=== PATIENT | female | born 1975 | race American Indian/Alaskan Native ===

== ENCOUNTER 2017-02-01 06:55 | Day surgery (SDC) | payer BC, MEDICAID, OTHER ==
[~2017-02-01 06:55] MED LIST: Bupivacaine 0.5% 10 ML SDV ONE; Lactated Ringers 1,000 ML IV SCH; Lidocaine 1% 30 ML SDV ONE; Sodium Chloride 0.9% 10 ML Syringe FLUSH PRN
[2017-02-01] MEDS ORDERED: ceFAZolin 1 GM in Premix Bag 1 BAG IV ONE (07:00)
[2017-02-01] MEDS ORDERED: fentaNYL 100 MCG/2 ML SDV ONE (07:54)
[2017-02-01] MEDS ORDERED: Midazolam 1 MG/ML 2 ML SDV ONE (07:54)
[2017-02-01] MEDS ORDERED: Glycopyrrolate 0.2 MG/ML 2 ML SDV ONE (07:55)
[2017-02-01] MEDS ORDERED: Ondansetron 4 MG/2 ML SDV ONE (07:55)
[2017-02-01] MEDS ORDERED: ePHEDrine 50 MG/ML SDV ONE (07:55)
[2017-02-01] MEDS ORDERED: Propofol 200 MG/20 ML SDV ONE (07:55)
[2017-02-01] MEDS ORDERED: Ketorolac 30 MG/ML SDV ONE (07:55)
[2017-02-01] MEDS ORDERED: Phenylephrine 1% 10 MG/ML SDV ONE (07:55)
[2017-02-01] MEDS ORDERED: Lidocaine 2% 20 ML MDV ONE (07:56)
[2017-02-01] MEDS ORDERED: Succinylcholine 200 MG/10 ML MDV ONE (07:56)
[2017-02-01] MEDS ORDERED: Bupivacaine 0.5% 10 ML SDV INJECT ONE ×3 (08:56→16:48)
[2017-02-01] MEDS ORDERED: Lidocaine 1% 30 ML SDV INJECT ONE ×3 (08:56→16:48)
[2017-02-01 11:01] VITALS: BP 140/82
--- NOTE | 2017-02-01 11:31 | PCM.OPNOTE ---
- General Post-Op/Procedure Note Date of Surgery/Procedure: 02/01/17 Operative Procedure(s): Right foot open plantar fasciectomy Pre Op Diagnosis: Right foot plantar fasciitis Post-Op Diagnosis: louie Anesthesia Technique: Local, MAC Primary Surgeon: Barbara Benedict Anesthesia Provider: Lennox Amaro EBL in mLs: 5 Complications: none Condition: Stable Free Text/Narrative:: Intake & Output 01/31/17 02/01/17 02/01/17 22:59 06:59 14:59 Intake Total 1100 Balance 1100 Pt tolerated procedure well and was transported to recovery with vss and vascular status intact to right foot. TT 26 mins. Well padded L&U splint applied with foot in 90 degrees.
--- NOTE | 2017-02-01 13:00 | OR ---
DATE: 02/01/2017 PREOPERATIVE DIAGNOSIS: Right foot plantar fasciitis. POSTOPERATIVE DIAGNOSIS: Right foot plantar fasciitis. PROCEDURE PERFORMED: Right foot open plantar fasciectomy. ANESTHESIA: Local MAC with preoperative local block of 10 mL 1:1 mixture of 1% lidocaine plain and 0.5% Marcaine plain. TOURNIQUET TIME: 26 minutes pneumatic ankle tourniquet. ESTIMATED BLOOD LOSS: Minimal. SPECIMEN: None. COMPLICATIONS: None. INDICATIONS: Elsie is a 41-year-old female, who presents with pain in the right foot in the heel area. She states her pain is 9/10 at worst. The onset is last spring. I have seen her in the past and we have tried shoe inserts, stretching, prednisone dose, activity modifications with no relief. The pain is aching and burning, sharp in nature and it is worsening. It is worse after weightbearing, standing after rest, and in the morning. She is on her feet all day at work, she works at the [employer] and this does get very painful for her by the end of the day. The patient voiced good understanding of proposed procedure and possible complications and elects to have surgery at this time. DESCRIPTION OF PROCEDURE: The patient was taken to the operating room, lying in supine position. After adequate anesthesia induction as described above, the right foot was prepped and draped in the usual sterile fashion. A pneumatic ankle tourniquet was inflated to 220 mmHg. Attention was then directed to the instep just distal to the calcaneal fat pad where an approximately 3 cm linear incision was made on the plantar aspect of the foot to gain access to the medial and central band of the plantar fascia. Sharp and blunt dissection performed down to the level of the plantar fascia band. An approximately 1 cm2 section of the central and medial band of the plantar fascia was resected from the foot. This was noted to be very thickened in nature. Inspection of the site revealed no further tightness to the plantar fascia in this area. The site was then flushed with copious amounts of sterile saline. Deep closure was completed with 3-0 Vicryl, and skin closure was completed with 4-0 nylon. The area was then dressed with Xeroform to the incision site, fluffs, Webril, and a well-padded L and U splint with the foot in 90 degrees. The patient tolerated the anesthesia and the procedure well and was brought to recovery room with vital signs stable in good condition with vascular status intact to the right foot as noted by immediate hyperemia upon deflation of the tourniquet. Tourniquet time was 26 minutes. The patient was then discharged home once she met hospital discharge requirements. [facility] /[id number]
[2017-02-01] MEDS ORDERED: Glycopyrrolate 0.2 MG/ML 2 ML SDV IV ONE (15:47)
[2017-02-01] MEDS ORDERED: Ketorolac 30 MG/ML SDV IVPUSH ONE (15:47)
[2017-02-01] MEDS ORDERED: Ondansetron 4 MG/2 ML SDV IV ONE (15:47)
[2017-02-01] MEDS ORDERED: fentaNYL 100 MCG/2 ML SDV IV ONE (15:47)
[2017-02-01] MEDS ORDERED: Propofol 200 MG/20 ML SDV IV ONE (15:47)
[2017-02-01] MEDS ORDERED: Lidocaine 2% 20 ML MDV INJECT ONE (15:47)
[2017-02-01] MEDS ORDERED: Midazolam 1 MG/ML 2 ML SDV IV ONE (15:47)
== END 2017-02-01 10:50 | disposition home or self-care (01) ==
LOC: DL.SDS 06:55
PROVIDERS: ATTEND Podiatrist
DX: M72.2 Plantar fascial fibromatosis (principal); F32.9 Major depressive disorder, single episode, unspecified; E11.9 Type 2 diabetes mellitus without complications; E78.5 Hyperlipidemia, unspecified; M17.0 Bilateral primary osteoarthritis of knee; Z79.84 Long term (current) use of oral hypoglycemic drugs; Z98.890 Other specified postprocedural states; Z79.82 Long term (current) use of aspirin; Z79.899 Other long term (current) drug therapy; Z87.891 Personal history of nicotine dependence
CPT/HCPCS: 28060; 81025; J0690; J1885; J2250; J2405; J2704; J3010; J7120; J3490

== ENCOUNTER 2018-04-10 01:36 | Inpatient (IN) | payer MEDICAID, OTHER ==
[2018-04-10] MEDS ORDERED: cefTRIAXone 1 GM Vial IVPUSH ONE (01:57)
[2018-04-10] MEDS ORDERED: Vancomycin 1.5 GM in Sodium Chloride 0.9% 500 ML IV ONE (01:57)
[2018-04-10] MEDS ORDERED: Ketorolac 30 MG/ML SDV IVPUSH ONE (01:59)
[2018-04-10] MEDS ORDERED: Sodium Chloride 0.9% 1,000 ML IV ONE (01:59)
[2018-04-10] MEDS ORDERED: Ondansetron 4 MG/2 ML SDV IV ONE (01:59)
[2018-04-10] MEDS ORDERED: Morphine 4 MG/ML Syringe IVPUSH ONE (02:00)
[2018-04-10] MEDS ORDERED: Lidocaine 1% 30 ML SDV ONE (02:04)
[2018-04-10] MEDS ORDERED: Lidocaine 1% 30 ML SDV INJECT ONE (02:04)
[2018-04-10] MEDS ORDERED: Midazolam 1 MG/ML 2 ML SDV IVPUSH ONE ×2 (02:23→02:53)
[2018-04-10 02:39] LABS: ANION GAP 11.4; CHLORIDE,CL 99 mmol/L (101-111); SODIUM,NA 132 mmol/L (135-145)
[2018-04-10] MEDS ORDERED: HYDROmorphone 0.5 MG/0.5 ML Syringe ONE (02:43)
[2018-04-10] MEDS ORDERED: HYDROmorphone 0.5 MG/0.5 ML Syringe IVPUSH ONE (02:43)
[2018-04-10] MEDS ORDERED: Midazolam 1 MG/ML 2 ML SDV ONE (02:53)
[2018-04-10] MEDS ORDERED: Iopamidol 612 MG/ML 100 ML Bottle IVPUSH ONE (03:50)
--- NOTE | 2018-04-10 05:12 | EDM.PDOC ---
ED HPI GENERAL MEDICAL PROBLEM - General Chief Complaint: Upper Extremity Injury/Pain Stated Complaint: ARM SWOLLEN [id number] Time Seen by Provider: 04/10/18 01:50 Source of Information: Reports: Patient, RN Notes Reviewed - History of Present Illness INITIAL COMMENTS - FREE TEXT/NARRATIVE: patient emergency department today with complaints of pain and swelling to her right elbow. Since Sunday she has developed a very painful swollen right elbow that has gotten much worse. She does complain of some generalized malaise and fatigue fever without chills. She denies any recent trauma falls or any other trauma to the right arm. She has not had any IVs blood draws her medication injection in the recent past.She has taken some Tylenol without improvement. She denies any pain in the axilla. Denies any numbness or tingling to the distal aspect of her hand of the right upper extremity. Right Arm Pain Score (Numeric/FACES): 9 - Related Data Allergies Allergy/AdvReac Type Severity Reaction Status Date / Time No Known Allergies Allergy Verified 04/10/18 01:40 Home Meds: Home Meds Gabapentin 600 mg PO TID 04/30/15 [History] Lisinopril 1 tab PO DAILY 04/30/15 [History] metFORMIN [Glucophage] 1 tab PO BID 04/30/15 [History] Aspirin 1 tab PO DAILY 01/31/17 [History] Rosuvastatin Calcium 1 tab PO DAILY 01/31/17 [History] Past Medical History - Past Health History Medical/Surgical History: Denies Medical/Surgical History HEENT History: Reports: None Cardiovascular History: Reports: High Cholesterol, Hypertension Respiratory History: Reports: None Gastrointestinal History: Reports: None Genitourinary History: Reports: None [employer] History: Reports: Musculoskeletal History: Reports: Arthritis Neurological History: Reports: Neuropathy, Diabetic Psychiatric History: Reports: Depression Endocrine/Metabolic History: Reports: Diabetes, Type II Hematologic History: Reports: None Immunologic History: Reports: None Oncologic (Cancer) History: Reports: None Dermatologic History: Reports: None - Infectious Disease History Infectious Disease History: Reports: None - Past Surgical History Head Surgeries/Procedures: Reports: None HEENT Surgical History: Reports: None Cardiovascular Surgical History: Reports: None Respiratory Surgical History: Reports: None GI Surgical History: Reports: None Female Surgical History: Reports: Section, LEEP Musculoskeletal Surgical History: Reports: Carpal Tunnel Social & Family History - Tobacco Use Smoking Status *Q: Current Every Day Smoker Years of Tobacco use: 1 Packs/Tins Daily: 0.5 Second Hand Smoke Exposure: Yes - Caffeine Use Caffeine Use: Reports: Coffee - Recreational Drug Use Recreational Drug Use: No - Living Situation & Occupation Living situation: Reports: Occupation: Employed Review of Systems - Review of Systems Review Of Systems: ROS reveals no pertinent complaints other than HPI. ED EXAM, GENERAL - Physical Exam Exam: See Below Exam Limited By: No Limitations General Appearance: Alert, WD/WN Respiratory/Chest: No Respiratory Distress, Lungs Clear, No Accessory Muscle Use Cardiovascular: Normal Peripheral Pulses, Regular Rate, Rhythm Peripheral Pulses: 2+: Radial (L), Radial (R), Posterior Tibial (L), Posterior Tibial (R), Dorsalis Pedis (L), Dorsalis Pedis (R) GI/Abdominal: Normal Bowel Sounds, Soft Extremities: Joint Swelling (there is generalized swelling surrounding the right elbow more on the antecubital fossa.), Limited Range of Motion (to the right arm.), Increased Warmth (o the right arm.), Other (n the antecubital fossa of the right arm there is also a noted fluctuance concerning for abscess. There is no breaks in the skin.) Neurological: Alert, Oriented Psychiatric: Normal Affect Skin Exam: Dry, Intact, Increased Warmth ED TRAUMA EXTREMITY PROCEDURES - I&D Site: right antecubital fossa Skin Prep: Providone-Iodine (Betadine) Local Anesthesia: Lidocaine: 1% Plain Local Anesthetic Volume: Other (15) Area Incised With: 11 Blade Drainage: Purulent, Bloody, Large Amount Probed to Break Up Loculations: Yes Packed With: 1/4 in. Iodoform Sterile Dressing: Adhesive Dressing Complications: No Course - Vital Signs Last Recorded V/S: Last Vital Signs Temp 36.6 C 04/10/18 01:37 Pulse 109 H 04/10/18 01:37 Resp 18 04/10/18 01:37 BP 167/85 H 04/10/18 01:37 Pulse Ox 100 04/10/18 01:37 - Orders/Labs/Meds Orders: Active Orders 24 hr Category Date Time Status Upper Extremity w Cont Rt [CT] Urgent Exams 04/10/18 03:04 Taken CULTURE BLOOD [BC] Stat Lab 08/22/18 01:55 Ordered CULTURE BLOOD [BC] Stat Lab 04/10/18 02:07 Received Blood Culture x2 Reflex Set [OM.PC] Stat Oth 04/10/18 01:55 Ordered Labs: Laboratory Tests 04/10/18 04/10/18 04/10/18 Range/Units 02:07 02:07 02:07 WBC 23.2 H (5.0-10.0) 10^3/uL RBC 4.60 (4.2-5.4) 10^6/uL Hgb 14.0 (12.0-16.0) g/dL Hct 41.9 (37.0-47.0) % MCV 91.1 (80-100) fL MCH 30.4 (27.0-34.0) pg MCHC 33.4 (33.0-35.0) g/dL Plt Count 458 H (150-450) 10^3/uL Neut % (Auto) 80.3 H (42.2-75.2) % Lymph % (Auto) 10.8 L (20.5-50.1) % [place] % (Auto) 7.5 (2-8) % Eos % (Auto) 1.3 (1.0-3.0) % Baso % (Auto) 0.1 (0.0-1.0) % Sodium 132 L (135-145) mmol/L Potassium 3.4 L (3.6-5.0) mmol/L Chloride 99 L (101-111) mmol/L Carbon Dioxide 25.0 (21.0-31.0) mmol/L Anion Gap 11.4 BUN 11 (7-18) mg/dL Creatinine 0.6 (0.6-1.3) mg/dL Est Cr Clr Drug Dosing 112.01 mL/min Estimated GFR (MDRD) > 60 BUN/Creatinine Ratio 18.33 Glucose 219 H (74-105) mg/dL Lactic Acid 1.6 (0.5-2.2) mmol/L Calcium 8.6 (8.4-10.2) mg/dl Total Bilirubin 0.2 (0.2-1.0) mg/dL AST 23 (10-42) IU/L ALT 22 (10-60) IU/L Alkaline Phosphatase 130 H (42-121) IU/L C-Reactive Protein (0.0-1.3) mg/dL Total Protein 8.3 H (6.7-8.2) g/dl Albumin 3.5 (3.2-5.5) g/dl Globulin 4.8 Albumin/Globulin Ratio 0.73 04/10/18 Range/Units 02:07 WBC (5.0-10.0) 10^3/uL RBC (4.2-5.4) 10^6/uL Hgb (12.0-16.0) g/dL Hct (37.0-47.0) % MCV (80-100) fL MCH (27.0-34.0) pg MCHC (33.0-35.0) g/dL Plt Count (150-450) 10^3/uL Neut % (Auto) (42.2-75.2) % Lymph % (Auto) (20.5-50.1) % [place] % (Auto) (2-8) % Eos % (Auto) (1.0-3.0) % Baso % (Auto) (0.0-1.0) % Sodium (135-145) mmol/L Potassium (3.6-5.0) mmol/L Chloride (101-111) mmol/L Carbon Dioxide (21.0-31.0) mmol/L Anion Gap BUN (7-18) mg/dL Creatinine (0.6-1.3) mg/dL Est Cr Clr Drug Dosing mL/min Estimated GFR (MDRD) BUN/Creatinine Ratio Glucose (74-105) mg/dL Lactic Acid (0.5-2.2) mmol/L Calcium (8.4-10.2) mg/dl Total Bilirubin (0.2-1.0) mg/dL AST (10-42) IU/L ALT (10-60) IU/L Alkaline Phosphatase (42-121) IU/L C-Reactive Protein 3.7 H (0.0-1.3) mg/dL Total Protein (6.7-8.2) g/dl Albumin (3.2-5.5) g/dl Globulin Albumin/Globulin Ratio Meds: Medications Discontinued Medications Generic Name Dose Route Start Last Admin Trade Name Freq PRN Reason Stop Dose Admin Ceftriaxone Sodium 1 gm 04/10/18 01:57 04/10/18 02:16 Rocephin IVPUSH 04/10/18 01:58 1 gm ONETIME ONE Administration Hydromorphone HCl 1 mg 04/10/18 02:43 04/10/18 02:44 Dilaudid IVPUSH 04/10/18 02:44 1 mg ONETIME ONE Administration Hydromorphone HCl Confirm 04/10/18 02:43 04/10/18 04:25 Dilaudid Administered 04/10/18 02:44 Not Given Dose 1 mg .ROUTE .STK-MED ONE Sodium Chloride 1,000 mls @ 999 mls/hr 04/10/18 01:59 04/10/18 02:09 Normal Saline IV 04/10/18 02:59 999 mls/hr .BOLUS ONE Administration Vancomycin HCl 1.5 gm/ Sodium 500 mls @ 334 mls/hr 04/10/18 01:57 04/10/18 02 :18 Chloride IV 04/10/18 03:26 334 mls/hr ONETIME ONE Administration Iopamidol 100 ml 04/10/18 03:50 04/10/18 03:51 Isovue-300 (61%) IVPUSH 04/10/18 03:51 100 ml ONETIME ONE Administration Ketorolac Tromethamine 30 mg 04/10/18 01:59 04/10/18 02:11 Toradol IVPUSH 04/10/18 02:00 30 mg ONETIME ONE Administration Lidocaine HCl Confirm 04/10/18 02:04 04/10/18 02:42 Xylocaine-Mpf 1% Administered 04/10/18 02:05 30 ml Dose Administration 30 ml .ROUTE .STK-MED ONE Midazolam HCl 2 mg 04/10/18 02:23 04/10/18 02:35 Versed 1 Mg/Ml IVPUSH 04/10/18 02:24 2 mg ONETIME ONE Administration Midazolam HCl 2 mg 04/10/18 02:53 04/10/18 02:54 Versed 1 Mg/Ml IVPUSH 04/10/18 02:54 2 mg ONETIME ONE Administration Midazolam HCl Confirm 04/10/18 02:53 04/10/18 04:25 Versed 1 Mg/Ml Administered 04/10/18 02:54 Not Given Dose 2 mg .ROUTE .STK-MED ONE Morphine Sulfate 4 mg 04/10/18 02:00 04/10/18 02:14 Morphine IVPUSH 04/10/18 02:01 4 mg ONETIME ONE Administration Ondansetron HCl 4 mg 04/10/18 01:59 04/10/18 02:10 Zofran IV 04/10/18 02:00 4 mg ONETIME ONE Administration - Radiology Interpretation Free Text/Narrative:: Postoperative changes at the site of inflamation in the anterior middle fossa. Minimal residual fluid. No persistent defined abscess. No soft tissue gas other than the packed wound. - Re-Assessments/Exams Free Text/Narrative Re-Assessment/Exam: 04/10/18 the patient was given pain medication as well as relaxation medication to help with anxiety during the procedure. She was given 1 g of Rocephin to cover for MSSA and 1500 mg of vancomycin to cover for MRSA.Due to hercomorbidities to include diabetes and the rather impressive cellulitic nature of this right elbow and abscess feel that inpatient management is warranted especially until culture results obtained. During the I&D culture was obtained from the right antecubital fossa. Departure - Departure Time of Disposition: 05:22 Disposition: Admitted As Inpatient 64 Clinical Impression: Abscess of antecubital fossa Sepsis Qualifiers: Sepsis type: sepsis due to unspecified organism Qualified Code(s): A41.9 - Sepsis, unspecified organism - Discharge Information ED Communication - Discussed Case With (1) Discussed Case With (1): Admitting Provider (Dr. Portillo, [facility] ER COURSE findings and concerns were relayed to Dr. Portillo. He accepted the patient in transfer at this time.) - My Orders Last 24 Hours: My Active Orders 04/10/18 01:55 CULTURE BLOOD [BC] Stat Blood Culture x2 Reflex Set [OM.PC] Stat 04/10/18 02:07 CULTURE BLOOD [BC] Stat 04/10/18 03:04 Upper Extremity w Cont Rt [CT] Urgent - Assessment/Plan Last 24 Hours: My Active Orders 04/10/18 01:55 CULTURE BLOOD [BC] Stat Blood Culture x2 Reflex Set [OM.PC] Stat 04/10/18 02:07 CULTURE BLOOD [BC] Stat 04/10/18 03:04 Upper Extremity w Cont Rt [CT] Urgent Assessment:: Sepsis without septic shock from right antecubital fossa with abscess I/D Plan: Admit Dr. Portillo.
[2018-04-10] MEDS ORDERED: Morphine 2 MG/ML Syringe IVPUSH PRN (06:51)
[2018-04-10] MEDS ORDERED: Ondansetron 4 MG/2 ML SDV IVPUSH PRN (06:51)
[2018-04-10] MEDS: Sodium Chloride 0.9% 1,000 ML IV SCH ×2 (07:34→17:12)
[2018-04-10] MEDS: Enoxaparin 40 MG/0.4 ML Syringe SUBCUT SCH (08:53)
[2018-04-10] MEDS: Acetaminophen/oxyCODONE 325-5 MG Tab PO PRN ×4 (09:07→21:27)
[2018-04-10] MEDS ORDERED: Sodium Chloride 0.9% 10 ML Syringe FLUSH PRN (11:26)
[2018-04-10] MEDS: Clindamycin Phosphate 900 MG in Sodium Chloride 0.9% 100 ML IV SCH ×2 (11:33→18:19)
--- NOTE | 2018-04-10 12:33 | PCM.HP ---
H&P History of Present Illness - General Date of Service: 04/10/18 Admit Problem/Dx: Admission Diagnosis/Problem Admission Diagnosis/Problem Abscess Source of Information: Patient - History of Present Illness Initial Comments - Free Text/Narative: the patient is a 42-year-old female with medical history of diabetes mellitus hypertension and peripheral neuroplasty. The patient presented to the emergency room with complaint of right elbow pain and swelling which started 5 days ago. Initially was mild but significantly got worse over time. She describes the pain as achy in nature. Intensity went up to 8 on a scale 0-10. She developed associated marked swelling of the elbow and it was spreading down into the forearm. She did have low-grade fever but no chills right gauze. Denies having nausea or vomiting. Patient was taken Tylenol without improvement hence she decided to seek medical attention and came to the emergency room. She was found to have a large abscess at the antecubital fossa. This was lanced. Patient was referred to the hospital for admission. Right Arm Pain Score (Numeric/FACES): 7 - Related Data Allergies/Adverse Reactions: Allergies Allergy/AdvReac Type Severity Reaction Status Date / Time No Known Allergies Allergy Verified 04/10/18 05:52 Home Medications: Home Meds Gabapentin 600 mg PO TID 04/30/15 [History] Lisinopril 1 tab PO DAILY 04/30/15 [History] metFORMIN [Glucophage] 1 tab PO BID 04/30/15 [History] Aspirin 1 tab PO DAILY 01/31/17 [History] Rosuvastatin Calcium 1 tab PO DAILY 01/31/17 [History] Past Medical History - Past Health History Medical/Surgical History: Denies Medical/Surgical History HEENT History: Reports: None Cardiovascular History: Reports: High Cholesterol, Hypertension Respiratory History: Reports: None Gastrointestinal History: Reports: None Genitourinary History: Reports: None [employer]AM [employer] History: Reports: Musculoskeletal History: Reports: Arthritis Neurological History: Reports: Neuropathy, Diabetic Psychiatric History: Reports: Depression Endocrine/Metabolic History: Reports: Diabetes, Type II Hematologic History: Reports: None Immunologic History: Reports: None Oncologic (Cancer) History: Reports: None Dermatologic History: Reports: None - Infectious Disease History Infectious Disease History: Reports: None - Past Surgical History Head Surgeries/Procedures: Reports: None HEENT Surgical History: Reports: None Cardiovascular Surgical History: Reports: None Respiratory Surgical History: Reports: None GI Surgical History: Reports: None Female Surgical History: Reports: Section, LEEP Musculoskeletal Surgical History: Reports: Carpal Tunnel Social & Family History - Family History Family Medical History: Noncontributory - Tobacco Use Smoking Status *Q: Current Every Day Smoker Years of Tobacco use: 9 Packs/Tins Daily: 0.5 Used Tobacco, but Quit: No Second Hand Smoke Exposure: No - Caffeine Use Caffeine Use: Reports: None - Recreational Drug Use Recreational Drug Use: No - Living Situation & Occupation Living situation: Reports: Occupation: Employed H&P Review of Systems - Review of Systems: Review Of Systems: See Below General: Reports: Chills, Malaise HEENT: Reports: No Symptoms Pulmonary: Reports: No Symptoms Cardiovascular: Reports: No Symptoms Gastrointestinal: Reports: No Symptoms Genitourinary: Reports: No Symptoms Musculoskeletal: Reports: Other (pain right elbow. Significant swelling as well. ) Exam - Exam Exam: See Below - Vital Signs Vital Signs: Last Vital Signs Temp 36.3 C 04/10/18 10:57 Pulse 66 04/10/18 10:57 Resp 20 04/10/18 10:57 BP 104/62 04/10/18 10:57 Pulse Ox 96 04/10/18 10:57 Weight: 95.254 kg - Exam General: Alert, Oriented, 4 HEENT: PERRLA, Hearing Intact, Mucosa Moist & [place], Nares Patent, Normal Nasal Septum, Posterior Pharynx Clear, Conjunctiva Clear, EOMI, EACs Clear, TMs Clear Lungs: Clear to Auscultation, Normal Respiratory Effort Cardiovascular: Regular Rate, Regular Rhythm Extremities: Other (marked swelling of the right elbow. Able to put be joint through full range of motion.) Skin: Warm Psychiatric: Alert, Normal Mood - Patient Data Lab Results Last 24 hrs: Laboratory Results - last 24 hr 04/10/18 04/10/18 04/10/18 Range/Units 02:07 02:07 02:07 WBC 23.2 H (5.0-10.0) 10^3/uL RBC 4.60 (4.2-5.4) 10^6/uL Hgb 14.0 (12.0-16.0) g/dL Hct 41.9 (37.0-47.0) % MCV 91.1 (80-100) fL MCH 30.4 (27.0-34.0) pg MCHC 33.4 (33.0-35.0) g/dL Plt Count 458 H (150-450) 10^3/uL Neut % (Auto) 80.3 H (42.2-75.2) % Lymph % (Auto) 10.8 L (20.5-50.1) % [place] % (Auto) 7.5 (2-8) % Eos % (Auto) 1.3 (1.0-3.0) % Baso % (Auto) 0.1 (0.0-1.0) % Sodium 132 L (135-145) mmol/L Potassium 3.4 L (3.6-5.0) mmol/L Chloride 99 L (101-111) mmol/L Carbon Dioxide 25.0 (21.0-31.0) mmol/L Anion Gap 11.4 BUN 11 (7-18) mg/dL Creatinine 0.6 (0.6-1.3) mg/dL Est Cr Clr Drug Dosing 112.01 mL/min Estimated GFR (MDRD) > 60 BUN/Creatinine Ratio 18.33 Glucose 219 H (74-105) mg/dL POC Glucose (70-105) mg/dl Lactic Acid 1.6 (0.5-2.2) mmol/L Calcium 8.6 (8.4-10.2) mg/dl Total Bilirubin 0.2 (0.2-1.0) mg/dL AST 23 (10-42) IU/L ALT 22 (10-60) IU/L Alkaline Phosphatase 130 H (42-121) IU/L C-Reactive Protein (0.0-1.3) mg/dL Total Protein 8.3 H (6.7-8.2) g/dl Albumin 3.5 (3.2-5.5) g/dl Globulin 4.8 Albumin/Globulin Ratio 0.73 04/10/18 04/10/18 04/10/18 Range/Units 02:07 07:08 07:56 WBC 20.6 H (5.0-10.0) 10^3/uL RBC 4.10 L (4.2-5.4) 10^6/uL Hgb 12.5 D (12.0-16.0) g/dL Hct 37.9 (37.0-47.0) % MCV 92.4 (80-100) fL MCH 30.5 (27.0-34.0) pg MCHC 33.0 (33.0-35.0) g/dL Plt Count 409 (150-450) 10^3/uL Neut % (Auto) 78.2 H (42.2-75.2) % Lymph % (Auto) 12.2 L (20.5-50.1) % [place] % (Auto) 8.1 H (2-8) % Eos % (Auto) 1.3 (1.0-3.0) % Baso % (Auto) 0.2 (0.0-1.0) % Sodium (135-145) mmol/L Potassium (3.6-5.0) mmol/L Chloride (101-111) mmol/L Carbon Dioxide (21.0-31.0) mmol/L Anion Gap BUN (7-18) mg/dL Creatinine (0.6-1.3) mg/dL Est Cr Clr Drug Dosing mL/min Estimated GFR (MDRD) BUN/Creatinine Ratio Glucose (74-105) mg/dL POC Glucose 125 H (70-105) mg/dl Lactic Acid (0.5-2.2) mmol/L Calcium (8.4-10.2) mg/dl Total Bilirubin (0.2-1.0) mg/dL AST (10-42) IU/L ALT (10-60) IU/L Alkaline Phosphatase (42-121) IU/L C-Reactive Protein 3.7 H (0.0-1.3) mg/dL Total Protein (6.7-8.2) g/dl Albumin (3.2-5.5) g/dl Globulin Albumin/Globulin Ratio Result Diagrams: 04/10/18 07:08 04/10/18 02:07 Problem List Initiated/Reviewed/Updated: Yes Orders Last 24hrs: Active Orders 24 hr Category Date Time Status Patient Status [ADT] Routine ADT 04/10/18 06:51 Active Oxygen Therapy [RC] PRN Care 04/10/18 06:51 Active Peripheral IV Care [RC] 09,21 Care 04/10/18 11:26 Active Up ad Michelle [RC] ASDIRECTED Care 04/10/18 06:51 Active Vital Signs [RC] 07,11,15,19,23,03 Care 04/10/18 06:51 Active Consistent Carbohydrate Diet [DIET] Diet 04/10/18 Breakfast Active CULTURE BLOOD [BC] Stat Lab 04/10/18 01:55 Ordered CULTURE BLOOD [BC] Stat Lab 04/10/18 02:07 Received CULTURE WOUND [RM] Routine Lab 04/10/18 03:06 Received Acetaminophen/oxyCODONE [Percocet 325-5 MG] Med 04/10/18 06:51 Active 1 tab PO Q4H PRN Clindamycin Phosphate [Cleocin] 900 mg Med 04/10/18 11:15 Active Sodium Chloride 0.9% [Normal Saline] 100 ml IV Q8H Enoxaparin [Lovenox] Med 04/10/18 09:00 Active 40 mg SUBCUT DAILY Morphine Med 04/10/18 06:51 Active 2 mg IVPUSH Q2H PRN Ondansetron [Zofran] Med 04/10/18 06:51 Active 4 mg IVPUSH Q6H PRN Sodium Chloride 0.9% [Normal Saline] 1,000 ml Med 04/10/18 07:00 Active IV ASDIRECTED Sodium Chloride 0.9% [Saline Flush] Med 04/10/18 11:26 Active 10 ml FLUSH ASDIRECTED PRN Blood Culture x2 Reflex Set [OM.PC] Stat Oth 04/10/18 01:55 Ordered Peripheral IV Insertion Adult [OM.PC] Routine Oth 04/10/18 11:26 Ordered Resuscitation Status Routine Resus Stat 04/10/18 06:51 Ordered Medication Orders Enoxaparin Sodium (Lovenox) 40 mg SUBCUT DAILY [facility] Last Admin: 04/10/18 08:53 Dose: 40 mg Sodium Chloride (Normal Saline) 1,000 mls @ 125 mls/hr IV ASDIRECTED MELINDA Last Admin: 04/10/18 07:34 Dose: 125 mls/hr Clindamycin Phosphate 900 mg/ (Sodium Chloride) 106 mls @ 200 mls/hr IV Q8H [facility] Last Admin: 04/10/18 11:33 Dose: 200 mls/hr Morphine Sulfate (Morphine) 2 mg IVPUSH Q2H PRN PRN Reason: Pain (severe 7-10) Ondansetron HCl (Zofran) 4 mg IVPUSH Q6H PRN PRN Reason: Nausea/Vomiting Oxycodone/Acetaminophen (Percocet 325-5 Mg) 1 tab PO Q4H PRN PRN Reason: Pain (moderate 4-6) Last Admin: 04/10/18 09:07 Dose: 1 tab Sodium Chloride (Saline Flush) 10 ml FLUSH ASDIRECTED PRN PRN Reason: Keep Vein Open Assessment/Plan Comment:: #. Right elbow cellulitis/abscess Patient is able to have full range of motion of the right elbow. I do not think the joint is involved. The emergency room physician assistant winemaker performed incision and drainage. #. Hyponatremia Serum sodium is down to 132 #. Hypokalemia serum potassium is down to 3.4 #. Diabetes mellitus type 2 Patient has been on oral hypoglycemic agent metformin Blood sugars are suboptimally controlled at this point #. Tobacco use disorder. Patient smokes half a pack of cigarettes a day #. Dyslipidemia Patient has been on simvastatin. #. Neuropathy Probably due to diabetes Patient has been on Neurontin. This will be continued plan: Admit patient to medical floor Intravenous fluid Intravenous morphine for pain control Intravenous vancomycin. The patient is not septic at this point. I suspect that we are dealing with either strep or staph infection and I with result of susceptibility
[2018-04-10] MEDS ORDERED: Potassium Chloride 10 MEQ Tab.ER PO ONE (12:37)
[2018-04-10] MEDS: Gabapentin 300 MG Cap PO SCH ×2 (13:34→21:27)
[2018-04-10] MEDS: metFORMIN 500 MG Tab PO SCH (17:11)
[2018-04-11] MEDS: Sodium Chloride 0.9% 1,000 ML IV SCH (02:47)
[2018-04-11] MEDS: Clindamycin Phosphate 900 MG in Sodium Chloride 0.9% 100 ML IV SCH ×3 (03:07→22:00)
[2018-04-11 06:53] LABS: ANION GAP 8.8; CHLORIDE,CL 108 mmol/L (101-111); SODIUM,NA 137 mmol/L (135-145)
[2018-04-11] MEDS: Enoxaparin 40 MG/0.4 ML Syringe SUBCUT SCH (09:08)
[2018-04-11] MEDS: Rosuvastatin 10 MG Tab PO SCH (09:08)
[2018-04-11] MEDS: Gabapentin 300 MG Cap PO SCH ×3 (09:09→22:00)
[2018-04-11] MEDS: metFORMIN 500 MG Tab PO SCH ×2 (09:09→17:31)
[2018-04-11] MEDS: Lisinopril 10 MG Tab PO SCH (09:10)
[2018-04-11] MEDS: Aspirin 81 MG Tab.Chew PO SCH (09:10)
[2018-04-11] MEDS: Acetaminophen/oxyCODONE 325-5 MG Tab PO PRN ×4 (09:20→22:39)
--- NOTE | 2018-04-11 12:33 | PCM.PN ---
- General Info Date of Service: 04/11/18 Admission Dx/Problem (Free Text): Admission Diagnosis/Problem Admission Diagnosis/Problem Right anti-cubital fossa Abscess Functional Status: Reports: Pain Controlled - Review of Systems General: Reports: No Symptoms HEENT: Reports: No Symptoms Pulmonary: Reports: No Symptoms Cardiovascular: Reports: No Symptoms Gastrointestinal: Reports: No Symptoms Genitourinary: Reports: No Symptoms Musculoskeletal: Reports: No Symptoms Skin: Reports: No Symptoms Neurological: Reports: No Symptoms Psychiatric: Reports: No Symptoms - Patient Data Vitals - Most Recent: Last Vital Signs Temp 98 F 04/11/18 11:00 Pulse 57 L 04/11/18 11:00 Resp 20 04/11/18 11:00 BP 118/72 04/11/18 11:00 Pulse Ox 99 04/11/18 11:00 Weight - Most Recent: 210 lb I&O - Last 24 Hours: Intake & Output 04/10/18 04/11/18 04/11/18 22:59 06:59 14:59 Intake Total 1190 1731 Balance 1190 1731 Lab Results Last 24 Hours: Laboratory Results - last 24 hr 04/10/18 04/10/18 04/11/18 Range/Units 10:52 16:49 06:00 WBC 12.0 H (5.0-10.0) 10^3/uL RBC 3.67 L (4.2-5.4) 10^6/uL Hgb 11.1 L (12.0-16.0) g/dL Hct 34.1 L (37.0-47.0) % MCV 92.9 (80-100) fL MCH 30.2 (27.0-34.0) pg MCHC 32.6 L (33.0-35.0) g/dL Plt Count 371 (150-450) 10^3/uL Neut % (Auto) 60.6 (42.2-75.2) % Lymph % (Auto) 27.0 (20.5-50.1) % [place] % (Auto) 7.9 (2-8) % Eos % (Auto) 4.2 H (1.0-3.0) % Baso % (Auto) 0.3 (0.0-1.0) % Sodium (135-145) mmol/L Potassium (3.6-5.0) mmol/L Chloride (101-111) mmol/L Carbon Dioxide (21.0-31.0) mmol/L Anion Gap BUN (7-18) mg/dL Creatinine (0.6-1.3) mg/dL Est Cr Clr Drug Dosing mL/min Estimated GFR (MDRD) Glucose (74-105) mg/dL POC Glucose 151 H 124 H (70-105) mg/dl Calcium (8.4-10.2) mg/dl 04/11/18 04/11/18 04/11/18 Range/Units 06:00 07:59 11:25 WBC (5.0-10.0) 10^3/uL RBC (4.2-5.4) 10^6/uL Hgb (12.0-16.0) g/dL Hct (37.0-47.0) % MCV (80-100) fL MCH (27.0-34.0) pg MCHC (33.0-35.0) g/dL Plt Count (150-450) 10^3/uL Neut % (Auto) (42.2-75.2) % Lymph % (Auto) (20.5-50.1) % [place] % (Auto) (2-8) % Eos % (Auto) (1.0-3.0) % Baso % (Auto) (0.0-1.0) % Sodium 137 (135-145) mmol/L Potassium 3.8 (3.6-5.0) mmol/L Chloride 108 (101-111) mmol/L Carbon Dioxide 24.0 (21.0-31.0) mmol/L Anion Gap 8.8 BUN 5 L (7-18) mg/dL Creatinine 0.5 L (0.6-1.3) mg/dL Est Cr Clr Drug Dosing 134.41 mL/min Estimated GFR (MDRD) > 60 Glucose 129 H (74-105) mg/dL POC Glucose 118 H 105 (70-105) mg/dl Calcium 8.1 L (8.4-10.2) mg/dl Casimiro Results Last 24 Hours: Microbiology 04/10/18 02:07 Aerobic Blood Culture - Preliminary Blood - Venous NO GROWTH AFTER 1 DAY Anaerobic Blood Culture - Preliminary NO GROWTH AFTER 1 DAY Med Orders - Current: Current Medications Aspirin (Aspirin) 81 mg PO DAILY [facility] Last Admin: 04/11/18 09:10 Dose: 81 mg Enoxaparin Sodium (Lovenox) 40 mg SUBCUT DAILY [facility] Last Admin: 04/11/18 09:08 Dose: 40 mg Gabapentin (Neurontin) 600 mg PO TID [facility] Last Admin: 04/11/18 09:09 Dose: 600 mg Sodium Chloride (Normal Saline) 1,000 mls @ 125 mls/hr IV ASDIRECTED [facility] Last Admin: 04/11/18 02:47 Dose: 125 mls/hr Clindamycin Phosphate 900 mg/ (Sodium Chloride) 106 mls @ 200 mls/hr IV Q8HR [facility] Lisinopril (Prinivil) 10 mg PO DAILY [facility] Last Admin: 04/11/18 09:10 Dose: 10 mg Metformin HCl (Glucophage) 1,000 mg PO BIDMEALS [facility] Last Admin: 04/11/18 09:09 Dose: 1,000 mg Morphine Sulfate (Morphine) 2 mg IVPUSH Q2H PRN PRN Reason: Pain (severe 7-10) Ondansetron HCl (Zofran) 4 mg IVPUSH Q6H PRN PRN Reason: Nausea/Vomiting Oxycodone/Acetaminophen (Percocet 325-5 Mg) 1 tab PO Q4H PRN PRN Reason: Pain (moderate 4-6) Last Admin: 04/11/18 09:20 Dose: 1 tab Rosuvastatin Calcium (Crestor) 5 mg PO DAILY [facility] Last Admin: 04/11/18 09:08 Dose: 5 mg Sodium Chloride (Saline Flush) 10 ml FLUSH ASDIRECTED PRN PRN Reason: Keep Vein Open Discontinued Medications Ceftriaxone Sodium (Rocephin) 1 gm IVPUSH ONETIME ONE Stop: 04/10/18 01:58 Last Admin: 04/10/18 02:16 Dose: 1 gm Hydromorphone HCl (Dilaudid) 1 mg IVPUSH ONETIME ONE Stop: 04/10/18 02:44 Last Admin: 04/10/18 02:44 Dose: 1 mg Hydromorphone HCl (Dilaudid) Confirm Administered Dose 1 mg .ROUTE .STK-MED ONE Stop: 04/10/18 02:44 Last Admin: 04/10/18 04:25 Dose: Not Given Sodium Chloride (Normal Saline) 1,000 mls @ 999 mls/hr IV .BOLUS ONE Stop: 04/10/18 02:59 Last Admin: 04/10/18 02:09 Dose: 999 mls/hr Vancomycin HCl 1.5 gm/ Sodium (Chloride) 500 mls @ 334 mls/hr IV ONETIME ONE Stop: 04/10/18 03:26 Last Admin: 04/10/18 02:18 Dose: 334 mls/hr Clindamycin Phosphate 900 mg/ (Sodium Chloride) 106 mls @ 200 mls/hr IV Q8H [facility] Last Admin: 04/11/18 03:07 Dose: 200 mls/hr Iopamidol (Isovue-300 (61%)) 100 ml IVPUSH ONETIME ONE Stop: 04/10/18 03:51 Last Admin: 04/10/18 03:51 Dose: 100 ml Ketorolac Tromethamine (Toradol) 30 mg IVPUSH ONETIME ONE Stop: 04/10/18 02:00 Last Admin: 04/10/18 02:11 Dose: 30 mg Lidocaine HCl (Xylocaine-Mpf 1%) Confirm Administered Dose 30 ml .ROUTE .STK- MED ONE Stop: 04/10/18 02:05 Last Admin: 04/10/18 02:42 Dose: 30 ml Lidocaine HCl (Xylocaine-Mpf 1%) 30 ml INJECT .STK-MED ONE Stop: 04/10/18 02:05 Midazolam HCl (Versed 1 Mg/Ml) 2 mg IVPUSH ONETIME ONE Stop: 04/10/18 02:24 Last Admin: 04/10/18 02:35 Dose: 2 mg Midazolam HCl (Versed 1 Mg/Ml) 2 mg IVPUSH ONETIME ONE Stop: 04/10/18 02:54 Last Admin: 04/10/18 02:54 Dose: 2 mg Midazolam HCl (Versed 1 Mg/Ml) Confirm Administered Dose 2 mg .ROUTE .STK-MED ONE Stop: 04/10/18 02:54 Last Admin: 04/10/18 04:25 Dose: Not Given Morphine Sulfate (Morphine) 4 mg IVPUSH ONETIME ONE Stop: 04/10/18 02:01 Last Admin: 04/10/18 02:14 Dose: 4 mg Ondansetron HCl (Zofran) 4 mg IV ONETIME ONE Stop: 04/10/18 02:00 Last Admin: 04/10/18 02:10 Dose: 4 mg Potassium Chloride (Klor-Con 10) 40 meq PO ONETIME ONE Stop: 04/10/18 12:38 Last Admin: 04/10/18 13:34 Dose: 40 meq - Exam Quality Assessment: DVT Prophylaxis General: Alert, Oriented HEENT: Pupils Equal, Pupils Reactive, EOMI, Mucous Membr. Moist/[employer] Neck: Supple Lungs: Clear to Auscultation, Normal Respiratory Effort Cardiovascular: Regular Rate, Regular Rhythm GI/Abdominal Exam: Normal Bowel Sounds, Soft, Non-Tender, No Organomegaly, No Distention, No Abnormal Bruit, No Mass, Pelvis Stable (Female) Exam: Normal External Exam, Normal Speculum Exam, Normal Bimanual Exam Back Exam: Normal Inspection, Full Range of Motion Extremities: Normal Inspection, Normal Range of Motion, Non-Tender, No Pedal Edema, Normal Capillary Refill Skin: Warm, Dry, Intact Wound/Incisions: Healing Well Neurological: No New Focal Deficit Psy/Mental Status: Alert, Normal Affect, Normal Mood - Problem List Review Problem List Initiated/Reviewed/Updated: Yes - My Orders Last 24 Hours: My Active Orders 04/11/18 11:52 Wound Care [RC] Q12HR 04/12/18 05:00 BASIC METABOLIC PANEL,BMP [CHEM] Routine CBC WITH AUTO DIFF [HEME] Routine - Plan Plan:: #. Right elbow cellulitis/abscess s/p I&D No drainage noted today. Wound base looks clean with healthy granulation tissue continue current abx #. Hyponatremia Resolved #. Hypokalemia Resolved #. Diabetes mellitus type 2 Patient has been on oral hypoglycemic agent metformin Blood sugars are suboptimally controlled at this point #. Tobacco use disorder. Patient smokes half a pack of cigarettes a day #. Dyslipidemia Patient has been on simvastatin. #. Neuropathy Probably due to diabetes Patient has been on Neurontin. This will be continued plan: continue IV clindamyecin Intravenous morphine for pain control elevation of right arm
[2018-04-12] MEDS: Clindamycin Phosphate 900 MG in Sodium Chloride 0.9% 100 ML IV SCH (05:15)
[2018-04-12] MEDS: Acetaminophen/oxyCODONE 325-5 MG Tab PO PRN ×2 (05:18→09:41)
[2018-04-12 07:56] LABS: CHLORIDE,CL 103 mmol/L (101-111); SODIUM,NA 138 mmol/L (135-145)
[2018-04-12] MEDS: metFORMIN 500 MG Tab PO SCH (09:31)
[2018-04-12] MEDS: Aspirin 81 MG Tab.Chew PO SCH (09:31)
[2018-04-12] MEDS: Gabapentin 300 MG Cap PO SCH ×2 (09:32→15:15)
[2018-04-12] MEDS: Enoxaparin 40 MG/0.4 ML Syringe SUBCUT SCH (09:32)
[2018-04-12] MEDS: Rosuvastatin 10 MG Tab PO SCH (09:33)
[2018-04-12] MEDS: Lisinopril 10 MG Tab PO SCH (09:42)
[2018-04-12 11:27] VITALS: BP 130/61
--- NOTE | 2018-04-12 11:39 | PCM.DCSUM1 ---
Discharge Summary - Hospital Course Free Text/Narrative:: PAtient admitted for right antecubital fossa abscess s/p I&D. Seen today and doing will. Right forearm swelling has subsided. Patient was managed with IV abx. She is being discharge home to day. She will follow with PCP and wound care clinic. HPI Initial Comments: PAtient admitted for right antecubital fossa abscess s/p I&D. Seen today and doing will. Right forearm swelling has subsided. Patient was managed with IV abx. She is being discharge home to day. She will follow with PCP and wound care clinic. Diagnosis: Stroke: No - Discharge Data Discharge Date: 04/12/18 Discharge Disposition: Home, Self-Care 01 Condition: Good - Patient Instructions Diet: Diabetic Diet Activity: As Tolerated Notify Provider of: Fever, Increased Pain, Swelling and Redness, Nausea and/or Vomiting - Discharge Plan *PRESCRIPTION DRUG MONITORING PROGRAM REVIEWED*: Yes *COPY OF PRESCRIPTION DRUG MONITORING REPORT IN PATIENT DANNIELLE: Yes Prescriptions/Med Rec: Clindamycin HCl [Cleocin] 300 mg PO Q8H 7 Days #42 cap Home Medications: Home Meds Gabapentin 600 mg PO TID 04/30/15 [History] Lisinopril 1 tab PO DAILY 04/30/15 [History] metFORMIN [Glucophage] 1 tab PO BID 04/30/15 [History] Aspirin 1 tab PO DAILY 01/31/17 [History] Rosuvastatin Calcium 1 tab PO DAILY 01/31/17 [History] Acetaminophen/oxyCODONE [Percocet 325-5 MG] 1 tab PO Q8H PRN 3 Days #10 tablet 04/12/18 [Rx] Clindamycin HCl [Cleocin] 300 mg PO Q8H 7 Days #42 cap 04/12/18 [Rx] Patient Handouts: Skin Abscess, [id number], Cellulitis, Adult, [id number], Incision and Drainage, Care After, Type 2 Diabetes Mellitus, Self Care, Adult, [id number], Steps to Quit Smoking Referrals: PCP,Not In Area [Primary Care Provider] - - Discharge Summary/Plan Comment DC Time >30 min.: Yes - General Info Date of Service: 04/12/18 Admission Dx/Problem (Free Text: Admission Diagnosis/Problem Admission Diagnosis/Problem Right anti-cubital fossa Abscess Functional Status: Reports: Pain Controlled - Review of Systems General: Reports: No Symptoms HEENT: Reports: No Symptoms Pulmonary: Reports: No Symptoms Cardiovascular: Reports: No Symptoms Gastrointestinal: Reports: No Symptoms Genitourinary: Reports: No Symptoms Musculoskeletal: Reports: No Symptoms Skin: Reports: No Symptoms Neurological: Reports: No Symptoms Psychiatric: Reports: No Symptoms - Patient Data Vitals - Most Recent: Last Vital Signs Temp 97.9 F 04/12/18 11:00 Pulse 75 04/12/18 11:00 Resp 20 04/12/18 11:00 BP 130/61 04/12/18 11:00 Pulse Ox 97 04/12/18 11:00 Weight - Most Recent: 210 lb I&O - Last 24 hours: Intake & Output 04/11/18 04/12/18 04/12/18 22:59 06:59 14:59 Intake Total 410 100 Balance 410 100 Lab Results - Last 24 hrs: Laboratory Results - last 24 hr 04/11/18 04/12/18 04/12/18 Range/Units 16:46 07:20 07:20 WBC 12.4 H (5.0-10.0) 10^3/uL RBC 3.77 L (4.2-5.4) 10^6/uL Hgb 11.4 L (12.0-16.0) g/dL Hct 35.1 L (37.0-47.0) % MCV 93.1 (80-100) fL MCH 30.2 (27.0-34.0) pg MCHC 32.5 L (33.0-35.0) g/dL Plt Count 404 (150-450) 10^3/uL Neut % (Auto) 62.1 (42.2-75.2) % Lymph % (Auto) 27.0 (20.5-50.1) % [place] % (Auto) 7.0 (2-8) % Eos % (Auto) 3.7 H (1.0-3.0) % Baso % (Auto) 0.2 (0.0-1.0) % Sodium 138 (135-145) mmol/L Potassium 4.0 (3.6-5.0) mmol/L Chloride 103 (101-111) mmol/L Carbon Dioxide 29.0 (21.0-31.0) mmol/L Anion Gap 10.0 BUN 4 L (7-18) mg/dL Creatinine 0.6 (0.6-1.3) mg/dL Est Cr Clr Drug Dosing 112.01 mL/min Estimated GFR (MDRD) > 60 Glucose 107 H (74-105) mg/dL POC Glucose 123 H (70-105) mg/dl Calcium 8.4 (8.4-10.2) mg/dl 04/12/18 04/12/18 Range/Units 08:00 10:58 WBC (5.0-10.0) 10^3/uL RBC (4.2-5.4) 10^6/uL Hgb (12.0-16.0) g/dL Hct (37.0-47.0) % MCV (80-100) fL MCH (27.0-34.0) pg MCHC (33.0-35.0) g/dL Plt Count (150-450) 10^3/uL Neut % (Auto) (42.2-75.2) % Lymph % (Auto) (20.5-50.1) % [place] % (Auto) (2-8) % Eos % (Auto) (1.0-3.0) % Baso % (Auto) (0.0-1.0) % Sodium (135-145) mmol/L Potassium (3.6-5.0) mmol/L Chloride (101-111) mmol/L Carbon Dioxide (21.0-31.0) mmol/L Anion Gap BUN (7-18) mg/dL Creatinine (0.6-1.3) mg/dL Est Cr Clr Drug Dosing mL/min Estimated GFR (MDRD) Glucose (74-105) mg/dL POC Glucose 96 125 H (70-105) mg/dl Calcium (8.4-10.2) mg/dl PARAS Results - Last 24 hrs: Microbiology 04/10/18 03:06 Wound Culture - Final Arm, Right 04/10/18 02:07 Aerobic Blood Culture - Preliminary Blood - Venous NO GROWTH AFTER 2 DAYS Anaerobic Blood Culture - Preliminary NO GROWTH AFTER 2 DAYS Med Orders - Current: Current Medications Aspirin (Aspirin) 81 mg PO DAILY [facility] B[facility]S AT [facility] Last Admin: 04/12/18 09:31 Dose: 81 mg Clindamycin HCl (Cleocin) 300 mg PO Q8H COUNTS INCLUDE 234 BEDS AT THE [facility] Enoxaparin Sodium (Lovenox) 40 mg SUBCUT DAILY [facility]S INCLUDE 234 BEDS AT THE [facility] Last Admin: 04/12/18 09:32 Dose: 40 mg Gabapentin (Neurontin) 600 mg PO TID COUNTS INCLUDE 234 BEDS AT [facility] Last Admin: 04/12/18 09:32 Dose: 600 mg Clindamycin Phosphate 900 mg/ (Sodium Chloride) 106 mls @ 200 mls/hr IV Q8HR [facility]S INCLUDE 234 BEDS AT [facility] Last Admin: 04/12/18 05:15 Dose: 200 mls/hr Lisinopril (Prinivil) 10 mg PO DAILY [facility]S [facility]CLUDE 234 BEDS AT [facility] Last Admin: 04/12/18 09:42 Dose: 10 mg Metformin HCl (Glucophage) 1,000 mg PO BIDMEALS COUNTS INCLUDE 234 BEDS AT [facility] Last Admin: 04/12/18 09:31 Dose: 1,000 mg Morphine Sulfate (Morphine) 2 mg IVPUSH Q2H PRN PRN Reason: Pain (severe 7-10) Ondansetron HCl (Zofran) 4 mg IVPUSH Q6H PRN PRN Reason: Nausea/Vomiting Oxycodone/Acetaminophen (Percocet 325-5 Mg) 1 tab PO Q4H PRN PRN Reason: Pain (moderate 4-6) Last Admin: 04/12/18 09:41 Dose: 1 tab Rosuvastatin Calcium (Crestor) 5 mg PO DAILY [facility] 234 BEDS AT [facility] Last Admin: 04/12/18 09:33 Dose: 5 mg Sodium Chloride (Saline Flush) 10 ml FLUSH ASDIRECTED PRN PRN Reason: Keep Vein Open Discontinued Medications Ceftriaxone Sodium (Rocephin) 1 gm IVPUSH ONETIME ONE Stop: 04/10/18 01:58 Last Admin: 04/10/18 02:16 Dose: 1 gm Hydromorphone HCl (Dilaudid) 1 mg IVPUSH ONETIME ONE Stop: 04/10/18 02:44 Last Admin: 04/10/18 02:44 Dose: 1 mg Hydromorphone HCl (Dilaudid) Confirm Administered Dose 1 mg .ROUTE .STK-MED ONE Stop: 04/10/18 02:44 Last Admin: 04/10/18 04:25 Dose: Not Given Sodium Chloride (Normal Saline) 1,000 mls @ 999 mls/hr IV .BOLUS ONE Stop: 04/10/18 02:59 Last Admin: 04/10/18 02:09 Dose: 999 mls/hr Vancomycin HCl 1.5 gm/ Sodium (Chloride) 500 mls @ 334 mls/hr IV ONETIME ONE Stop: 04/10/18 03:26 Last Admin: 04/10/18 02:18 Dose: 334 mls/hr Sodium Chloride (Normal Saline) 1,000 mls @ 125 mls/hr IV ASDIRECTED COUNTS INCLUDE 234 BEDS AT THE [facility] Last Admin: 04/11/18 02:47 Dose: 125 mls/hr Clindamycin Phosphate 900 mg/ (Sodium Chloride) 106 mls @ 200 mls/hr IV Q8H COUNTS INCLUDE 234 BEDS AT [facility] Last Admin: 04/11/18 03:07 Dose: 200 mls/hr Iopamidol (Isovue-300 (61%)) 100 ml IVPUSH ONETIME ONE Stop: 04/10/18 03:51 Last Admin: 04/10/18 03:51 Dose: 100 ml Ketorolac Tromethamine (Toradol) 30 mg IVPUSH ONETIME ONE Stop: 04/10/18 02:00 Last Admin: 04/10/18 02:11 Dose: 30 mg Lidocaine HCl (Xylocaine-Mpf 1%) Confirm Administered Dose 30 ml .ROUTE .STK- MED ONE Stop: 04/10/18 02:05 Last Admin: 04/10/18 02:42 Dose: 30 ml Lidocaine HCl (Xylocaine-Mpf 1%) 30 ml INJECT .STK-MED ONE Stop: 04/10/18 02:05 Midazolam HCl (Versed 1 Mg/Ml) 2 mg IVPUSH ONETIME ONE Stop: 04/10/18 02:24 Last Admin: 04/10/18 02:35 Dose: 2 mg Midazolam HCl (Versed 1 Mg/Ml) 2 mg IVPUSH ONETIME ONE Stop: 04/10/18 02:54 Last Admin: 04/10/18 02:54 Dose: 2 mg Midazolam HCl (Versed 1 Mg/Ml) Confirm Administered Dose 2 mg .ROUTE .STK-MED ONE Stop: 04/10/18 02:54 Last Admin: 04/10/18 04:25 Dose: Not Given Morphine Sulfate (Morphine) 4 mg IVPUSH ONETIME ONE Stop: 04/10/18 02:01 Last Admin: 04/10/18 02:14 Dose: 4 mg Ondansetron HCl (Zofran) 4 mg IV ONETIME ONE Stop: 04/10/18 02:00 Last Admin: 04/10/18 02:10 Dose: 4 mg Potassium Chloride (Klor-Con 10) 40 meq PO ONETIME ONE Stop: 04/10/18 12:38 Last Admin: 04/10/18 13:34 Dose: 40 meq - Exam General: Reports: Alert, Oriented HEENT: Reports: Pupils Equal, Pupils Reactive, EOMI, Mucous Membr. Moist/[place] Neck: Reports: Supple Lungs: Reports: Clear to Auscultation, Normal Respiratory Effort Cardiovascular: Reports: Regular Rate, Regular Rhythm GI/Abdominal Exam: Normal Bowel Sounds, Soft, Non-Tender, No Organomegaly, No Distention, No Abnormal Bruit, No Mass, Pelvis Stable (Female) Exam: Normal External Exam, Normal Speculum Exam, Normal Bimanual Exam Rectal (Female) Exam: Normal Exam, Normal Rectal Tone Back Exam: Reports: Normal Inspection, Full Range of Motion Extremities: Normal Inspection, Normal Range of Motion, Non-Tender, No Pedal Edema, Normal Capillary Refill Skin: Reports: Warm, Dry, Intact Wound/Incisions: Reports: Healing Well Neurological: Reports: No New Focal Deficit Psy/Mental Status: Reports: Alert, Normal Affect, Normal Mood Discharge Operative/Procedures - Procedures Performed I&D Site: right antecubital fossa
[2018-04-12] MEDS ORDERED: Clindamycin HCl 150 MG Cap PO SCH (14:00)
== END 2018-04-12 13:30 | disposition home or self-care (01) | DRG 580 ==
LOC: DL.ED 01:36 → UNDOADMIN 05:26 → DL.MS 05:26
PROVIDERS: ADMIT Hospitalist; ATTEND Hospitalist
PROC: 0J9D0ZZ Drainage of Right Upper Arm Subcutaneous Tissue and Fascia, Open Approach (ICD-10-PCS; principal; 2018-04-10)
DX: A41.9 Sepsis, unspecified organism (principal); L02.413 Cutaneous abscess of right upper limb; E87.1 Hypo-osmolality and hyponatremia; E11.40 Type 2 diabetes mellitus with diabetic neuropathy, unspecified; I10 Essential (primary) hypertension; E11.42 Type 2 diabetes mellitus with diabetic polyneuropathy; E87.6 Hypokalemia; E78.00 Pure hypercholesterolemia, unspecified; F32.9 Major depressive disorder, single episode, unspecified; F17.210 Nicotine dependence, cigarettes, uncomplicated; Z79.84 Long term (current) use of oral hypoglycemic drugs; Z79.899 Other long term (current) drug therapy; Z79.82 Long term (current) use of aspirin
CPT/HCPCS: 10060; 36415; 73201; 80048; 80053; 82962; 83605; 85025; 86140; 87040; 87070; 96365; 96366; 96368; 96375; 99285; A9270-GY; J0696; J1170; J1650; J1885; J2250; J2270; J2405; J3370; J3490; J7030; J7040; J7050; Q9967

== ENCOUNTER 2019-11-11 12:19 | Emergency (ER) | payer MEDICAID ==
[2019-11-11 12:44] VITALS: BP 150/61; PULSE 80
--- NOTE | 2019-11-11 12:49 | EDM.PDOC ---
ED HPI GENERAL MEDICAL PROBLEM - General Chief Complaint: ENT Problem Stated Complaint: EAR PAIN Time Seen by Provider: 11/11/19 12:40 Source of Information: Reports: Patient History Limitations: Reports: No Limitations - History of Present Illness INITIAL COMMENTS - FREE TEXT/NARRATIVE: This 44 yo female patient reports to the ED with left ear pain that started last night. The patient reports she took ibuprofen about 2 hours prior to arrival with no symptom improvement. Onset Date: 11/10/19 Duration: Constant Location: Reports: Head (left ear) Quality: Reports: Ache, Sharp, Stabbing Severity: Severe Improves with: Reports: None Worsens with: Reports: None Context: Reports: Other Associated Symptoms: Reports: No Other Symptoms Treatments [employer] WREST[employer]: Reports: NSAIDS - Related Data Allergies Allergy/AdvReac Type Severity Reaction Status Date / Time No Known Allergies Allergy Verified 08/06/18 15:02 Home Meds: Home Meds Gabapentin 600 mg PO TID 04/30/15 [History] Lisinopril 10 mg PO DAILY 04/30/15 [History] metFORMIN [Glucophage] 1,000 mg PO BID 04/30/15 [History] DULoxetine [Cymbalta] 20 mg PO BID 07/20/18 [History] Past Medical History - Past Health History Medical/Surgical History: Denies Medical/Surgical History HEENT History: Reports: None Cardiovascular History: Reports: High Cholesterol, Hypertension Respiratory History: Reports: Pneumonia, Recurrent Gastrointestinal History: Reports: None Genitourinary History: Reports: None [employer]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: Musculoskeletal History: Reports: Arthritis Neurological History: Reports: Neuropathy, Diabetic Psychiatric History: Reports: Depression Endocrine/Metabolic History: Reports: Diabetes, Type II Hematologic History: Reports: None Immunologic History: Reports: None Oncologic (Cancer) History: Reports: None Dermatologic History: Reports: None - Infectious Disease History Infectious Disease History: Reports: None Other Infectious Disease History: Bacteremia - Past Surgical History Head Surgeries/Procedures: Reports: None HEENT Surgical History: Reports: None Cardiovascular Surgical History: Reports: None Respiratory Surgical History: Reports: None GI Surgical History: Reports: None Female Surgical History: Reports: Section, LEEP Musculoskeletal Surgical History: Reports: Carpal Tunnel, Other (See Below) Other Musculoskeletal Surgeries/Procedures:: had carpal tunnel surgery, foot surgery Social & Family History - Family History Family Medical History: Noncontributory - Tobacco Use Smoking Status *Q: Current Some Day Smoker Years of Tobacco use: 30 Packs/Tins Daily: 0.5 - Caffeine Use Caffeine Use: Reports: None - Alcohol Use Days Per Week of Alcohol Use: 4 Number of Drinks Per Day: 5 Total Drinks Per Week: 20 - Recreational Drug Use Recreational Drug Use: No - Living Situation & Occupation Living situation: Reports: Occupation: Employed ED ROS ENT - Review of Systems Review Of Systems: Comprehensive ROS is negative, except as noted in HPI. ED EXAM, ENT - Physical Exam Exam: See Below Exam Limited By: No Limitations General Appearance: Alert, WD/WN, Moderate Distress Eye Exam: Bilateral Eye: EOMI, Normal Inspection, PERRL Ears: Normal External Exam, Hearing Grossly Normal, TM Obscured by Cerumen (on the left with erythema seen in canal, no drainage), Other (mastoid palpated with no report of tenderness) Nose: Clear Rhinorrhea Mouth/Throat: Normal Inspection, Normal Gums, Normal Lips, Normal Oropharynx, Normal Teeth Head: Atraumatic, Normocephalic Neck: Normal Inspection, Supple, Non-Tender, Full Range of Motion Respiratory/Chest: No Respiratory Distress, Lungs Clear, Normal Breath Sounds, No Accessory Muscle Use, Chest Non-Tender Cardiovascular: Normal Peripheral Pulses, Regular Rate, Rhythm, No Edema, No Gallop, No JVD, No Murmur, No Rub GI/Abdominal: Normal Bowel Sounds, Soft, Non-Tender, No Organomegaly, No Distention, No Abnormal Bruit, No Mass (Female) Exam: Deferred Rectal (Female) Exam: Deferred Back: Normal Inspection, Full Range of Motion Extremities: Normal Inspection, Normal Range of Motion, Non-Tender, No Pedal Edema, Normal Capillary Refill Neurological: Alert, Oriented, CN II-XII Intact, Normal Cognition, Normal Gait, Normal Reflexes, No Motor/Sensory Deficits Psychiatric: Normal Affect, Normal Mood Skin: Warm, Dry, Intact, Normal Color, No Rash Lymphatic: No Adenopathy Course - Vital Signs Last Recorded V/S: Last Vital Signs Temp 36.7 C 11/11/19 12:32 Pulse 80 11/11/19 12:32 Resp 18 11/11/19 12:32 BP 150/61 H 11/11/19 12:32 Pulse Ox 99 11/11/19 12:32 Departure - Departure Time of Disposition: 12:46 Disposition: Home, Self-Care 01 Condition: Fair Clinical Impression: Otitis media Qualifiers: Otitis media type: serous Chronicity: acute Laterality: left Recurrence: non- recurrent Qualified Code(s): H65.02 - Acute serous otitis media, left ear - Discharge Information *PRESCRIPTION DRUG MONITORING PROGRAM REVIEWED*: Not Applicable *COPY OF PRESCRIPTION DRUG MONITORING REPORT IN PATIENT DANNIELLE: Not Applicable Instructions: Otitis Media, Adult, [id number] Forms: ED Department Discharge Care Plan Goals: The patient was advised of the examination results during the visit. The patient was discharged with a script for Augmentin (875/125) to take 1 by mouth 2 times per day for 10 days. The patient was encouraged to take Tylenol or ibuprofen as directed for temporary symptom relief. The patient was also encouraged to apply a warm cloth to the area. If the patient continues to have symptoms or further concerns, the patient should visit her primary care facility for further evaluation and treatment. Sepsis Event Note - Evaluation Sepsis Screening Result: No Definite Risk - Focused Exam Vital Signs: Vital Signs Temp Pulse Resp BP Pulse Ox 11/11/19 12:32 36.7 C 80 18 150/61 H 99 Date Exam was Performed: 11/11/19 Time Exam was Performed: 12:50
== END 2019-11-11 12:55 | disposition home or self-care (01) ==
LOC: DL.ED 12:19
DX: H65.02 Acute serous otitis media, left ear (principal); I10 Essential (primary) hypertension; E11.40 Type 2 diabetes mellitus with diabetic neuropathy, unspecified; E78.00 Pure hypercholesterolemia, unspecified; M19.90 Unspecified osteoarthritis, unspecified site; F32.9 Major depressive disorder, single episode, unspecified; F17.210 Nicotine dependence, cigarettes, uncomplicated; Z79.899 Other long term (current) drug therapy; Z79.84 Long term (current) use of oral hypoglycemic drugs
CPT/HCPCS: 99282

== ENCOUNTER 2020-08-02 15:18 | Emergency (ER) | payer MEDICAID ==
[2020-08-02 15:48] VITALS: BP 169/95; PULSE 108
== END 2020-08-02 16:25 | disposition left against medical advice (07) ==
LOC: DL.ED 15:18
DX: Z53.21 Procedure and treatment not carried out due to patient leaving prior to being seen by health care provider (principal)

== ENCOUNTER 2020-08-03 07:39 | Inpatient (IN) | payer MEDICAID ==
--- NOTE | 2020-08-03 07:59 | EDM.PDOC ---
ED HPI GENERAL MEDICAL PROBLEM - General Stated Complaint: UNABLE TO MOVE RIGHT ARM Time Seen by Provider: 08/03/20 07:59 Source of Information: Reports: Patient, RN, RN Notes Reviewed History Limitations: Reports: No Limitations - History of Present Illness INITIAL COMMENTS - FREE TEXT/NARRATIVE: Patient is a 44-year-old female who presents to the ER with complaint of swelling, redness, pain, and inability to move the right arm. Patient states she has injected drugs but has not for 2 to 3 weeks. States yesterday she began having a redness in the antecubital area of the right arm, redness has been growing, pain increasing, and the inability to move increasing. Patient denies any fever chills, nausea, vomiting, diarrhea. Onset: Gradual Duration: Getting Worse Location: Reports: Upper Extremity, Right Quality: Reports: Throbbing Severity: Moderate Improves with: Reports: None Worsens with: Reports: Movement Associated Symptoms: Reports: No Other Symptoms Right Arm Pain Score (Numeric/FACES): 8 - Related Data Allergies Allergy/AdvReac Type Severity Reaction Status Date / Time No Known Allergies Allergy Verified 08/03/20 08:07 Home Meds: Home Meds Gabapentin 600 mg PO TID 04/30/15 [History] Lisinopril 10 mg PO DAILY 04/30/15 [History] DULoxetine [Cymbalta] 20 mg PO BID 07/20/18 [History] Glimepiride 2 mg PO 08/02/20 [History] atorvaSTATin [Lipitor] 08/02/20 [History] Past Medical History - Past Health History Medical/Surgical History: Denies Medical/Surgical History HEENT History: Reports: None Cardiovascular History: Reports: High Cholesterol, Hypertension Respiratory History: Reports: Pneumonia, Recurrent Gastrointestinal History: Reports: None Genitourinary History: Reports: None 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: Musculoskeletal History: Reports: Arthritis Neurological History: Reports: Neuropathy, Diabetic Psychiatric History: Reports: Depression Endocrine/Metabolic History: Reports: Diabetes, Type II Hematologic History: Reports: None Immunologic History: Reports: None Oncologic (Cancer) History: Reports: None Dermatologic History: Reports: None - Infectious Disease History Infectious Disease History: Reports: None Other Infectious Disease History: Bacteremia - Past Surgical History Head Surgeries/Procedures: Reports: None HEENT Surgical History: Reports: None Cardiovascular Surgical History: Reports: None Respiratory Surgical History: Reports: None GI Surgical History: Reports: None Female Surgical History: Reports: Section, LEEP Musculoskeletal Surgical History: Reports: Carpal Tunnel, Other (See Below) Other Musculoskeletal Surgeries/Procedures:: had carpal tunnel surgery, foot surgery Social & Family History - Family History Family Medical History: No Pertinent Family History - Caffeine Use Caffeine Use: Reports: Energy Drinks, Soda - Living Situation & Occupation Living situation: Reports: Occupation: Employed ED ROS GENERAL - Review of Systems Review Of Systems: Comprehensive ROS is negative, except as noted in HPI. ED EXAM, SKIN/RASH Exam: See Below Exam Limited By: No Limitations General Appearance: Alert, WD/WN, Mild Distress Eye Exam: Bilateral Eye: EOMI, Normal Inspection Ears: Normal External Exam, Hearing Grossly Normal Nose: Normal Inspection Throat/Mouth: Normal Inspection, Normal Voice, No Airway Compromise Head: Atraumatic, Normocephalic Neck: Normal Inspection, Supple, Non-Tender, Full Range of Motion Respiratory/Chest: No Respiratory Distress, Lungs Clear, Normal Breath Sounds, No Accessory Muscle Use, Chest Non-Tender Cardiovascular: Normal Peripheral Pulses, Regular Rate, Rhythm, No Edema, No Gallop, No JVD, No Murmur, No Rub Peripheral Pulses: 2+: Radial (L), Radial (R) GI/Abdominal: Normal Bowel Sounds, Soft, Non-Tender (Female) Exam: Deferred Rectal (Female) Exam: Deferred Back Exam: Normal Inspection, Full Range of Motion, NT Extremities: Joint Swelling (right elbow), Arm Pain (right), Limited Range of Motion (right arm), Redness (right antecubital) Neurological: Alert, Oriented, CN II-XII Intact, Normal Cognition, Normal Gait, Normal Reflexes, No Motor/Sensory Deficits Psychiatric: Anxious Skin: Warm, Dry, No Rash, Erythema, Increased Warmth Location, Skin: Upper Extremity, Right Associated features: Warmth, Tenderness, Swelling, Inflammation. No: Induration, Weeping Lymphatic: No Adenopathy Course - Vital Signs Last Recorded V/S: Last Vital Signs Temp 99.4 F 08/03/20 07:59 Pulse 110 H 08/03/20 07:59 Resp 18 08/03/20 07:59 BP 188/98 H 08/03/20 07:59 Pulse Ox 98 08/03/20 07:59 - Orders/Labs/Meds Orders: Active Orders 24 hr Category Date Time Status CULTURE BLOOD [BC] Stat Lab 08/03/20 08:12 Received CULTURE BLOOD [BC] Stat Lab 08/03/20 08:20 Received Blood Culture x2 Reflex Set [OM.PC] Stat Oth 08/03/20 07:59 Ordered Labs: Laboratory Tests 08/03/20 08/03/20 08/03/20 Range/Units 08:12 08:12 08:12 WBC 17.5 H (5.0-10.0) 10^3/uL RBC 4.46 (4.2-5.4) 10^6/uL Hgb 13.8 (12.0-16.0) g/dL Hct 40.5 (37.0-47.0) % MCV 90.8 (80-100) fL MCH 30.9 (27.0-34.0) pg MCHC 34.1 (33.0-35.0) g/dL Plt Count 294 (150-450) 10^3/uL Neut % (Auto) 75.2 (42.2-75.2) % Lymph % (Auto) 16.8 L (20.5-50.1) % [place] % (Auto) 7.2 (2-8) % Eos % (Auto) 0.6 L (1.0-3.0) % Baso % (Auto) 0.2 (0.0-1.0) % Sodium 134 L (136-145) mmol/L Potassium 3.5 (3.5-5.1) mmol/L Chloride 97 L (98-107) mmol/L Carbon Dioxide 26 (21-32) mmol/L Anion Gap 14.5 H (7-13) mEq/L BUN 8 (7-18) mg/dL Creatinine 0.89 (0.55-1.02) mg/dL Est Cr Clr Drug Dosing 73.94 mL/min Estimated GFR (MDRD) > 60 BUN/Creatinine Ratio 9.0 (No establ ref range) Glucose 194 H (74-99) mg/dL Lactic Acid 2.1 H* (0.4-2.0) mmol/L Calcium 8.4 L (8.5-10.1) mg/dL Total Bilirubin 0.3 (0.2-1.0) mg/dL AST 40 H (15-37) U/L ALT 69 H (14-59) U/L Alkaline Phosphatase 167 H (46-116) U/L C-Reactive Protein 1.9 H (0.0-0.9) mg/dL Total Protein 7.9 (6.4-8.2) g/dL Albumin 3.4 (3.4-5.0) g/dL Globulin 4.5 Albumin/Globulin Ratio 0.8 Meds: Medications Discontinued Medications Generic Name Dose Route Start Last Admin Trade Name Freq PRN Reason Stop Dose Admin Piperacillin Sod/Tazobactam 100 mls @ 200 mls/hr 08/03/20 10:21 08/03/20 10:38 Sod 3.375 gm/ Sodium Chloride IV 08/03/20 10:50 200 mls/hr ONETIME ONE Administration Iopamidol 100 ml 08/03/20 09:40 08/03/20 10:24 Isovue-300 (61%) IVPUSH 08/03/20 09:41 98 ml ONETIME ONE Administration - Radiology Interpretation Free Text/Narrative:: CT right arm with contrast: 1. Moderate localized subcutaneous edema anteriorly without discrete abscess or underlying destructive osseous change. 2. No visualized superficial or deep venous thrombus evident. May consider Doppler ultrasound in this regard. See rad report - Re-Assessments/Exams Free Text/Narrative Re-Assessment/Exam: 08/03/20 10:53 Discussed patient case with Dr. Stover who agreed to accept the patient for inpatient admission today. Departure - Departure Time of Disposition: 10:55 Disposition: Admitted As Inpatient 64 Condition: Fair Clinical Impression: Right arm cellulitis - Discharge Information *PRESCRIPTION DRUG MONITORING PROGRAM REVIEWED*: No *COPY OF PRESCRIPTION DRUG MONITORING REPORT IN PATIENT DANNIELLE: No Sepsis Event Note (ED) - Focused Exam Vital Signs: Vital Signs Temp Pulse Resp BP Pulse Ox 08/03/20 07:59 99.4 F 110 H 18 188/98 H 98 - My Orders Last 24 Hours: My Active Orders 08/03/20 07:59 Blood Culture x2 Reflex Set [OM.PC] Stat 08/03/20 08:12 CULTURE BLOOD [BC] Stat 08/03/20 08:20 CULTURE BLOOD [BC] Stat - Assessment/Plan Last 24 Hours: My Active Orders 08/03/20 07:59 Blood Culture x2 Reflex Set [OM.PC] Stat 08/03/20 08:12 CULTURE BLOOD [BC] Stat 08/03/20 08:20 CULTURE BLOOD [BC] Stat
[2020-08-03 08:53] LABS: ANION GAP 14.5 mEq/L (7-13); CHLORIDE,CL 97 mmol/L (98-107); SODIUM,NA 134 mmol/L (136-145)
[2020-08-03] MEDS ORDERED: Iopamidol 612 MG/ML 100 ML Bottle IVPUSH ONE (09:40)
--- NOTE | 2020-08-03 09:55 | CT ---
PROCEDURE INFORMATION: Exam: CT Right Upper Extremity With Contrast, Elbow Exam date and time: 08/03/2020 9:28 AM Age: 44 years old Clinical indication: Other: Erythema, swelling, ? abscess, thrombosis TECHNIQUE: Imaging protocol: CT of the Right upper extremity with intravenous contrast was performed. Exam focused on the elbow. Radiation optimization: All CT scans at this facility use at least one of these dose optimization techniques: automated exposure control; mA and/or kV adjustment per patient size (includes targeted exams where dose is matched to clinical indication); or iterative reconstruction. Contrast material: ISOVUE 300; Contrast volume: 98 ml; Contrast route: INTRAVENOUS (IV); COMPARISON: CT Upper Extremity w Cont Rt 04/10/2018 3:17 AM FINDINGS: Bones/joints: The joint spaces are normally aligned. No significant joint effusion is evident. There is no osseous erosion or cortical destruction. There is again mild productive change along the lateral epicondyle. Soft tissues: There is moderate localized subcutaneous edema anteriorly over the lower arm, elbow and upper forearm. No discrete collection to suggest abscess is identified. There is no abnormal gas in the soft tissues. Vasculature: No thrombus of the visualized superficial or deep veins is evident. IMPRESSION: 1. Moderate localized subcutaneous edema anteriorly without discrete abscess or underlying destructive osseous change. 2. No visualized superficial or deep venous thrombus evident. May consider Doppler ultrasound in this regard. 3. Mild productive change along the lateral epicondyle, as on 04/10/18.
[2020-08-03] MEDS ORDERED: Piperacillin/Tazobactam 3.375 GM in Sodium Chloride 0.9% 100 ML IV ONE (10:21)
[2020-08-03] MEDS ORDERED: Docusate Sodium 100 MG Cap PO PRN (11:45)
[2020-08-03] MEDS ORDERED: Acetaminophen 325 MG Tab PO PRN (11:45)
[2020-08-03] MEDS ORDERED: Ondansetron 4 MG Tab.DIS PO PRN (11:45)
[2020-08-03] MEDS ORDERED: Glucagon,Human Recombinant 1 MG Vial IM PRN (11:51)
[2020-08-03] MEDS ORDERED: 50% Dextrose in Water 50 ML Syringe IV PRN (11:51)
[2020-08-03] MEDS: oxyCODONE 5 MG Tab PO PRN ×3 (12:51→22:22)
[2020-08-03] MEDS: Sodium Chloride 0.9% 1,000 ML IV SCH ×2 (12:55→23:51)
[2020-08-03] MEDS: Insulin Lispro 100 Units/ML 3 ML Vial SUBCUT SCH ×2 (12:55→18:11)
--- NOTE | 2020-08-03 13:18 | HP ---
CHIEF COMPLAINT: Right arm pain. HISTORY OF PRESENT ILLNESS: The patient is a 44-year-old female with past medical history of type 2 diabetes mellitus, hypertension, hypercholesterolemia, and history of abscess of the right forearm in 2018, was admitted through the emergency room because the patient is complaining of swelling and redness and pain and inability to move the right arm. The patient admits that she has injected drugs, but not for the last 2 to 3 weeks. She has been having redness of the antecubital area of the right arm with pain and inability to move that has progressively gotten worse. The patient denies though any fever, chills, nausea, vomiting, or any diarrhea, nor any other complaints. REVIEW OF SYSTEMS: The rest of the review of systems is negative. PAST MEDICAL HISTORY: As in HPI and she also had an abscess on the right antecubital area in 2018 that was drained. FAMILY HISTORY: Noncontributory. SOCIAL HISTORY: The patient is a smoker and admitted to injecting drugs. ALLERGIES: No known drug allergies. HOME MEDICATION: 1. Gabapentin 600 mg t.i.d. 2. Lisinopril 10 mg daily. 3. Duloxetine 20 mg p.o. b.i.d. 4. Glimepiride 2 mg daily. 5. Lipitor. PHYSICAL EXAMINATION: General: The patient is alert, in mild distress from the right arm pain. Vital Signs: Blood pressure is 188/98, pulse of 110, respirations 18, and temperature of 99.4. SHEENT: Normocephalic. There are pink palpebral conjunctivae. Sclerae anicteric. No JVD. No lymphadenopathy. Heart: Regular, slightly tachycardic. Lungs: Equal. No crackles. No wheezing. Abdomen: Soft, nontender. Bowel sounds positive. Extremities: Negative for any pedal edema. No calf tenderness. Examination of the right upper extremity is remarkable for warmth, tenderness, and swelling on the anterior aspect of the right arm. LABORATORY DATA: CBC: WBC 17.5, hemoglobin is 13.8, hematocrit is 40.5, platelet is 294. Comp panel: Sodium is 134, chloride of 97, anion gap is 14.5, glucose is 194, AST is 40, ALT 69, alkaline phosphatase is 167. C-reactive protein is 1.9. The rest of the panel unremarkable. CAT scan of the upper extremity showed moderately localized subcutaneous edema anteriorly without discrete abscess or underlying destructive osseous change. There is no visualized superficial or deep venous thrombosis. ADMITTING DIAGNOSES: 1. Cellulitis of the right arm. 2. Systemic inflammatory response syndrome. 3. Type 2 diabetes mellitus. 4. Hypertension. 5. Diabetic peripheral neuropathy. TREATMENT PLAN: The patient is going to be admitted to General Medicine floor. She will be empirically started on IV antibiotics, Zosyn as well as vancomycin to cover MRSA. Blood cultures were sent, and she will be on sliding scale insulin and DVT prophylaxis, and the rest of the management as necessary. The patient is a full code. [facility] /[id number]
[2020-08-03] MEDS: Gabapentin 300 MG Cap PO SCH ×2 (15:00→20:48)
[2020-08-03] MEDS: Glimepiride 2 MG Tab PO SCH (15:00)
[2020-08-03] MEDS ORDERED: Lisinopril 10 MG Tab PO SCH (15:00)
[2020-08-03] MEDS: Lisinopril 20 MG Tab PO SCH (16:14)
[2020-08-03] MEDS ORDERED: Aspirin 81 MG Tab.Chew PO ONE (17:24)
[2020-08-03] MEDS: DULoxetine 30 MG Cap PO SCH (18:16)
[2020-08-03] MEDS: Piperacillin/Tazobactam 3.375 GM in Sodium Chloride 0.9% 100 ML IV SCH ×2 (18:16→23:50)
[2020-08-03] MEDS ORDERED: Non-Formulary Medication 1 Each (Duloxetine [Cymbalta] 20 MG) PO SCH (21:00)
[2020-08-04] MEDS: oxyCODONE 5 MG Tab PO PRN ×5 (04:18→21:25)
[2020-08-04] MEDS: Piperacillin/Tazobactam 3.375 GM in Sodium Chloride 0.9% 100 ML IV SCH ×3 (05:58→17:47)
[2020-08-04] MEDS: Insulin Lispro 100 Units/ML 3 ML Vial SUBCUT SCH ×3 (07:53→22:52)
[2020-08-04] MEDS: Glimepiride 2 MG Tab PO SCH (08:36)
[2020-08-04] MEDS: atorvaSTATin 20 MG Tab PO SCH (08:36)
[2020-08-04] MEDS: DULoxetine 30 MG Cap PO SCH (08:36)
[2020-08-04] MEDS: Lisinopril 20 MG Tab PO SCH (08:37)
[2020-08-04] MEDS: Gabapentin 300 MG Cap PO SCH ×3 (08:37→21:18)
[2020-08-04] MEDS: Nicotine 21 MG/24 Hr Patch TRDERM SCH (08:38)
[2020-08-04] MEDS: Enoxaparin 40 MG/0.4 ML Syringe SUBCUT SCH (08:38)
[2020-08-04] MEDS: Sodium Chloride 0.9% 1,000 ML IV SCH (11:54)
--- NOTE | 2020-08-04 12:08 | PCM.PN ---
- General Info Date of Service: 08/04/20 Subjective Update: The patient has no new complaint today Still has redness and pain on the right arm No fever and no chills. No nausea no vomiting. - Review of Systems General: Reports: Fatigue, Malaise Pulmonary: Reports: No Symptoms Cardiovascular: Reports: No Symptoms Gastrointestinal: Reports: No Symptoms Musculoskeletal: Reports: No Symptoms Skin: Reports: No Symptoms - Patient Data Vitals - Most Recent: Last Vital Signs Temp 37.1 C 08/04/20 08:00 Pulse 52 L 08/04/20 08:00 Resp 16 08/04/20 08:00 BP 142/81 H 08/04/20 08:37 Pulse Ox 99 08/04/20 08:00 Weight - Most Recent: 102.512 kg I&O - Last 24 Hours: Intake & Output 08/03/20 08/04/20 08/04/20 22:59 06:59 14:59 Intake Total 880 Balance 880 Lab Results Last 24 Hours: Laboratory Results - last 24 hr 08/03/20 08/03/20 08/03/20 Range/Units 10:58 12:14 13:15 POC Glucose 179 H (70-105) mg/dl Lactic Acid 2.3 H* (0.4-2.0) mmol/L SARS-CoV-2 RNA (DENA) Negative (NEGATIVE) 08/03/20 08/03/20 08/04/20 Range/Units 16:39 20:35 07:27 POC Glucose 148 H 144 H 214 H (70-105) mg/dl Lactic Acid (0.4-2.0) mmol/L SARS-CoV-2 RNA (DENA) (NEGATIVE) 08/04/20 Range/Units 11:15 POC Glucose 203 H (70-105) mg/dl Lactic Acid (0.4-2.0) mmol/L SARS-CoV-2 RNA (DENA) (NEGATIVE) Casimiro Results Last 24 Hours: Microbiology 08/03/20 08:20 Aerobic Blood Culture - Preliminary Blood - Arm, Left NO GROWTH AFTER 1 DAY Anaerobic Blood Culture - Preliminary NO GROWTH AFTER 1 DAY 08/03/20 08:12 Aerobic Blood Culture - Preliminary Blood - Arm, Left NO GROWTH AFTER 1 DAY Anaerobic Blood Culture - Preliminary NO GROWTH AFTER 1 DAY Med Orders - Current: Current Medications Acetaminophen (Tylenol) 650 mg PO Q4H PRN PRN Reason: Pain (Mild 1-3)/fever Atorvastatin Calcium (Lipitor) 20 mg PO DAILY [facility] Last Admin: 08/04/20 08:36 Dose: 20 mg Documented by: Dextrose/Water (Dextrose 50% In Water) 50 ml IV ASDIRECTED PRN PRN Reason: Hypoglycemia Docusate Sodium (Colace) 100 mg PO BID PRN PRN Reason: Constipation Duloxetine HCl (Cymbalta) 60 mg PO DAILY [facility] Last Admin: 08/04/20 08:36 Dose: 60 mg Documented by: Enoxaparin Sodium (Lovenox) 40 mg SUBCUT DAILY [facility] Last Admin: 08/04/20 08:38 Dose: Not Given Documented by: Gabapentin (Neurontin) 600 mg PO TID [facility] Last Admin: 08/04/20 08:37 Dose: 600 mg Documented by: Glimepiride (Amaryl) 2 mg PO DAILY [facility] Last Admin: 08/04/20 08:36 Dose: 2 mg Documented by: Glucagon (Glucagen) 1 mg IM ASDIRECTED PRN PRN Reason: Hypoglycemia Sodium Chloride (Normal Saline) 1,000 mls @ 125 mls/hr IV ASDIRECTED [facility] Last Admin: 08/04/20 11:54 Dose: 125 mls/hr Documented by: Piperacillin Sod/Tazobactam (Sod 3.375 gm/ Sodium Chloride) 100 mls @ 200 mls/hr IV Q6H [facility] Last Admin: 08/04/20 11:51 Dose: 200 mls/hr Documented by: Vancomycin HCl 1.25 gm/ Sodium (Chloride) 250 mls @ 166.667 mls/hr IV Q8H [facility] Last Admin: 08/04/20 04:19 Dose: 166.667 mls/hr Documented by: Influenza Virus Vaccine (Pharmacy To Dose - Influenza Vaccine) 1 each IM DAILY PRN PRN Reason: discharge Insulin Human Lispro (Humalog) 0 unit SUBCUT TIDMEALS [facility]; Protocol Last Admin: 08/04/20 11:51 Dose: 2 unit Documented by: Lisinopril (Prinivil) 20 mg PO DAILY [facility] Last Admin: 08/04/20 08:37 Dose: 20 mg Documented by: Miscellaneous Information (Remove Patch) 1 ea TRDERM DAILY [facility] Last Admin: 08/04/20 09:14 Dose: Not Given Documented by: Nicotine (Habitrol) 21 mg TRDERM DAILY [facility] Last Admin: 08/04/20 08:38 Dose: Not Given Documented by: Ondansetron HCl (Zofran Odt) 4 mg PO Q4H PRN PRN Reason: nausea, able to take PO Oxycodone HCl (Oxycodone) 5 mg PO Q4H PRN PRN Reason: Pain (moderate 4-6) Last Admin: 08/04/20 08:38 Dose: 5 mg Documented by: Vancomycin HCl (Pharmacy To Dose - Vancomycin) 1 dose .XX ASDIRECTED [facility] Discontinued Medications Aspirin (Aspirin) 81 mg PO ONETIME ONE Stop: 08/03/20 17:25 Last Admin: 08/03/20 18:16 Dose: 81 mg Documented by: Piperacillin Sod/Tazobactam (Sod 3.375 gm/ Sodium Chloride) 100 mls @ 200 mls/hr IV ONETIME ONE Stop: 08/03/20 10:50 Last Admin: 08/03/20 10:38 Dose: 200 mls/hr Documented by: Iopamidol (Isovue-300 (61%)) 100 ml IVPUSH ONETIME ONE Stop: 08/03/20 09:41 Last Admin: 08/03/20 10:24 Dose: 98 ml Documented by: Lisinopril (Prinivil) 10 mg PO DAILY [facility] Non-Formulary Medication (Duloxetine [Cymbalta]) 20 mg PO BID MELINDA - Exam General: Alert, Oriented, Cooperative HEENT: Pupils Equal, Pupils Reactive, EOMI, Mucous Membr. Moist/[place] Neck: Supple Lungs: Clear to Auscultation, Normal Respiratory Effort Cardiovascular: Regular Rate, Regular Rhythm GI/Abdominal Exam: Normal Bowel Sounds, Soft, Non-Tender, No Organomegaly, No Distention, No Abnormal Bruit, No Mass, Pelvis Stable Sepsis Event Note - Evaluation Sepsis Screening Result: No Definite Risk - Focused Exam Vital Signs: Vital Signs Temp Pulse Resp BP BP Pulse Ox 08/04/20 08:37 142/81 H 08/04/20 08:00 37.1 C 52 L 16 142/81 H 99 - Problem List Review Problem List Initiated/Reviewed/Updated: Yes - My Orders Last 24 Hours: My Active Orders 08/04/20 11:02 LACTIC ACID [CHEM] Routine 08/05/20 05:11 BASIC METABOLIC PANEL,BMP [CHEM] AM CBC W/O DIFF,HEMOGRAM [HEME] AM - Plan Plan:: Is a 44-year-old female with medical history of hypertension, diabetes mellitus type 2, history of intravenous drug use who was admitted with cellulitis of the right arm. Patient was started on intravenous vancomycin and Zosyn. #. Cellulitis of the right arm This is probably due to intravenous drug use #. Sepsis Patient presented with leukocytosis white count of 17,000. Lactic acid has been elevated Likely due to Staphylococcus or Streptococcus Plan: Discontinue Zosyn Continue intravenous vancomycin Check lactic acid Obtain repeat complete blood count Send sample for basic metabolic panel Obtain ultrasound of the right upper quadrant
[2020-08-04 13:05] LABS: ANION GAP 13.6 mEq/L (7-13); CHLORIDE,CL 101 mmol/L (98-107); SODIUM,NA 134 mmol/L (136-145)
--- NOTE | 2020-08-04 15:42 | US ---
EXAMINATION: Venous Doppler Upr Ext Rt SEX: Female AGE: 44 years CLINICAL HISTORY: 44-year-old female with pain and swelling antecubital fossa on the right. Rule out deep vein thrombosis in this patient with a history of "IV drug use". Interpretation: Negative exam. No sonographic evidence intraluminal echogenic thrombus and normal compressibility deep veins of the right upper extremity, and the ipsilateral right subclavian vein. Focal relatively hypoechoic area in her elbow that may represent small hematoma (arterial "stick"?). No echogenic "shadowing" foreign bodies.
[2020-08-05] MEDS: Piperacillin/Tazobactam 3.375 GM in Sodium Chloride 0.9% 100 ML IV SCH ×2 (02:24→09:10)
[2020-08-05] MEDS: oxyCODONE 5 MG Tab PO PRN ×5 (02:25→20:32)
[2020-08-05] MEDS: Sodium Chloride 0.9% 1,000 ML IV SCH (04:06)
[2020-08-05 06:56] LABS: ANION GAP 8.9 mEq/L (7-13); CHLORIDE,CL 103 mmol/L (98-107); SODIUM,NA 133 mmol/L (136-145)
[2020-08-05] MEDS: Insulin Lispro 100 Units/ML 3 ML Vial SUBCUT SCH ×3 (09:10→17:12)
[2020-08-05] MEDS: DULoxetine 30 MG Cap PO SCH (09:10)
[2020-08-05] MEDS: atorvaSTATin 20 MG Tab PO SCH (09:11)
[2020-08-05] MEDS: Lisinopril 20 MG Tab PO SCH (09:12)
[2020-08-05] MEDS: Glimepiride 2 MG Tab PO SCH (09:12)
[2020-08-05] MEDS: Gabapentin 300 MG Cap PO SCH ×3 (09:13→20:32)
[2020-08-05] MEDS: Enoxaparin 40 MG/0.4 ML Syringe SUBCUT SCH (09:15)
[2020-08-05] MEDS: Nicotine 21 MG/24 Hr Patch TRDERM SCH (09:15)
--- NOTE | 2020-08-05 11:54 | PCM.PN ---
- General Info Date of Service: 08/05/20 Subjective Update: The patient continues to complain of pain around her right elbow She is still reddish. Degree of redness is about the same No fever documented. No nausea no vomiting. She does not think that it has improved enough - Review of Systems General: Reports: No Symptoms Pulmonary: Reports: No Symptoms Cardiovascular: Reports: No Symptoms Gastrointestinal: Reports: No Symptoms - Patient Data Vitals - Most Recent: Last Vital Signs Temp 35.9 C L 08/05/20 07:48 Pulse 78 08/05/20 07:48 Resp 20 08/05/20 07:48 BP 141/86 H 08/05/20 09:12 Pulse Ox 98 08/05/20 07:48 Weight - Most Recent: 102.512 kg I&O - Last 24 Hours: Intake & Output 08/04/20 08/05/20 08/05/20 22:59 06:59 14:59 Intake Total 990 796 Balance 990 796 Lab Results Last 24 Hours: Laboratory Results - last 24 hr 08/04/20 08/04/20 08/04/20 Range/Units 12:40 12:40 12:40 WBC 11.9 H (5.0-10.0) 10^3/uL RBC 4.01 L (4.2-5.4) 10^6/uL Hgb 12.4 (12.0-16.0) g/dL Hct 36.9 L (37.0-47.0) % MCV 92.0 (80-100) fL MCH 30.9 (27.0-34.0) pg MCHC 33.6 (33.0-35.0) g/dL Plt Count 254 (150-450) 10^3/uL Neut % (Auto) 79.3 H (42.2-75.2) % Lymph % (Auto) 13.6 L (20.5-50.1) % Payette % (Auto) 5.2 (2-8) % Eos % (Auto) 1.7 (1.0-3.0) % Baso % (Auto) 0.2 (0.0-1.0) % Sodium 134 L (136-145) mmol/L Potassium 3.6 (3.5-5.1) mmol/L Chloride 101 (98-107) mmol/L Carbon Dioxide 23 (21-32) mmol/L Anion Gap 13.6 H (7-13) mEq/L BUN 8 (7-18) mg/dL Creatinine 0.95 (0.55-1.02) mg/dL Est Cr Clr Drug Dosing 69.27 mL/min Estimated GFR (MDRD) > 60 Glucose 213 H (74-99) mg/dL POC Glucose (70-105) mg/dl Lactic Acid (0.4-2.0) mmol/L Calcium 8.2 L (8.5-10.1) mg/dL Vancomycin Trough 14.7 (10.0-20.0) ug/mL 08/04/20 08/04/20 08/04/20 Range/Units 12:40 16:54 21:19 WBC (5.0-10.0) 10^3/uL RBC (4.2-5.4) 10^6/uL Hgb (12.0-16.0) g/dL Hct (37.0-47.0) % MCV (80-100) fL MCH (27.0-34.0) pg MCHC (33.0-35.0) g/dL Plt Count (150-450) 10^3/uL Neut % (Auto) (42.2-75.2) % Lymph % (Auto) (20.5-50.1) % Payette % (Auto) (2-8) % Eos % (Auto) (1.0-3.0) % Baso % (Auto) (0.0-1.0) % Sodium (136-145) mmol/L Potassium (3.5-5.1) mmol/L Chloride (98-107) mmol/L Carbon Dioxide (21-32) mmol/L Anion Gap (7-13) mEq/L BUN (7-18) mg/dL Creatinine (0.55-1.02) mg/dL Est Cr Clr Drug Dosing mL/min Estimated GFR (MDRD) Glucose (74-99) mg/dL POC Glucose 148 H 170 H (70-105) mg/dl Lactic Acid 2.3 H* (0.4-2.0) mmol/L Calcium (8.5-10.1) mg/dL Vancomycin Trough (10.0-20.0) ug/mL 08/05/20 08/05/2020 Range/Units 06:14 06:14 06:14 WBC 10.8 H (5.0-10.0) 10^3/uL RBC 3.70 L (4.2-5.4) 10^6/uL Hgb 11.5 L (12.0-16.0) g/dL Hct 34.6 L (37.0-47.0) % MCV 93.5 (80-100) fL MCH 31.1 (27.0-34.0) pg MCHC 33.2 (33.0-35.0) g/dL Plt Count 251 (150-450) 10^3/uL Neut % (Auto) (42.2-75.2) % Lymph % (Auto) (20.5-50.1) % Payette % (Auto) (2-8) % Eos % (Auto) (1.0-3.0) % Baso % (Auto) (0.0-1.0) % Sodium 133 L (136-145) mmol/L Potassium 3.9 (3.5-5.1) mmol/L Chloride 103 (98-107) mmol/L Carbon Dioxide 25 (21-32) mmol/L Anion Gap 8.9 (7-13) mEq/L BUN 8 (7-18) mg/dL Creatinine 0.80 (0.55-1.02) mg/dL Est Cr Clr Drug Dosing 82.26 mL/min Estimated GFR (MDRD) > 60 Glucose 151 H (74-99) mg/dL POC Glucose (70-105) mg/dl Lactic Acid 0.7 (0.4-2.0) mmol/L Calcium 8.0 L (8.5-10.1) mg/dL Vancomycin Trough (10.0-20.0) ug/mL 08/05/20 08/05/20 Range/Units 08:00 11:25 WBC (5.0-10.0) 10^3/uL RBC (4.2-5.4) 10^6/uL Hgb (12.0-16.0) g/dL Hct (37.0-47.0) % MCV (80-100) fL MCH (27.0-34.0) pg MCHC (33.0-35.0) g/dL Plt Count (150-450) 10^3/uL Neut % (Auto) (42.2-75.2) % Lymph % (Auto) (20.5-50.1) % Payette % (Auto) (2-8) % Eos % (Auto) (1.0-3.0) % Baso % (Auto) (0.0-1.0) % Sodium (136-145) mmol/L Potassium (3.5-5.1) mmol/L Chloride (98-107) mmol/L Carbon Dioxide (21-32) mmol/L Anion Gap (7-13) mEq/L BUN (7-18) mg/dL Creatinine (0.55-1.02) mg/dL Est Cr Clr Drug Dosing mL/min Estimated GFR (MDRD) Glucose (74-99) mg/dL POC Glucose 152 H 138 H (70-105) mg/dl Lactic Acid (0.4-2.0) mmol/L Calcium (8.5-10.1) mg/dL Vancomycin Trough (10.0-20.0) ug/mL Casimiro Results Last 24 Hours: Microbiology 08/03/20 08:20 Aerobic Blood Culture - Preliminary Blood - Arm, Left NO GROWTH AFTER 2 DAYS Anaerobic Blood Culture - Preliminary NO GROWTH AFTER 2 DAYS 08/03/20 08:12 Aerobic Blood Culture - Preliminary Blood - Arm, Left NO GROWTH AFTER 2 DAYS Anaerobic Blood Culture - Preliminary NO GROWTH AFTER 2 DAYS Med Orders - Current: Current Medications Acetaminophen (Tylenol) 650 mg PO Q4H PRN PRN Reason: Pain (Mild 1-3)/fever Atorvastatin Calcium (Lipitor) 20 mg PO DAILY [facility] Last Admin: 08/05/20 09:11 Dose: 20 mg Documented by: Dextrose/Water (Dextrose 50% In Water) 50 ml IV ASDIRECTED PRN PRN Reason: Hypoglycemia Docusate Sodium (Colace) 100 mg PO BID PRN PRN Reason: Constipation Duloxetine HCl (Cymbalta) 60 mg PO DAILY [facility] Last Admin: 08/05/20 09:10 Dose: 60 mg Documented by: Enoxaparin Sodium (Lovenox) 40 mg SUBCUT DAILY [facility] Last Admin: 08/05/20 09:15 Dose: Not Given Documented by: Gabapentin (Neurontin) 600 mg PO TID [facility] Last Admin: 08/05/20 09:13 Dose: 600 mg Documented by: Glimepiride (Amaryl) 2 mg PO DAILY [facility] Last Admin: 08/05/20 09:12 Dose: 2 mg Documented by: Glucagon (Glucagen) 1 mg IM ASDIRECTED PRN PRN Reason: Hypoglycemia Vancomycin HCl 1.25 gm/ Sodium (Chloride) 250 mls @ 166.667 mls/hr IV Q8H [facility] Last Infusion: 08/05/20 08:45 Dose: Infused Documented by: Influenza Virus Vaccine (Pharmacy To Dose - Influenza Vaccine) 1 each IM DAILY PRN PRN Reason: discharge Insulin Human Lispro (Humalog) 0 unit SUBCUT TIDMEALS [facility]; Protocol Last Admin: 08/05/20 11:35 Dose: Not Given Documented by: Lisinopril (Prinivil) 20 mg PO DAILY [facility] Last Admin: 08/05/20 09:12 Dose: 20 mg Documented by: Miscellaneous Information (Remove Patch) 1 ea TRDERM DAILY [facility] Last Admin: 08/05/20 10:34 Dose: Not Given Documented by: Nicotine (Habitrol) 21 mg TRDERM DAILY [facility] Last Admin: 08/05/20 09:15 Dose: Not Given Documented by: Ondansetron HCl (Zofran Odt) 4 mg PO Q4H PRN PRN Reason: nausea, able to take PO Oxycodone HCl (Oxycodone) 5 mg PO Q4H PRN PRN Reason: Pain (moderate 4-6) Last Admin: 08/05/20 10:55 Dose: 5 mg Documented by: Vancomycin HCl (Pharmacy To Dose - Vancomycin) 1 dose .XX ASDIRECTED [facility] Discontinued Medications Aspirin (Aspirin) 81 mg PO ONETIME ONE Stop: 08/03/20 17:25 Last Admin: 08/03/20 18:16 Dose: 81 mg Documented by: Piperacillin Sod/Tazobactam (Sod 3.375 gm/ Sodium Chloride) 100 mls @ 200 mls/hr IV ONETIME ONE Stop: 08/03/20 10:50 Last Admin: 08/03/20 10:38 Dose: 200 mls/hr Documented by: Sodium Chloride (Normal Saline) 1,000 mls @ 125 mls/hr IV ASDIRECTED [facility] Last Admin: 08/05/20 04:06 Dose: 125 mls/hr Documented by: Piperacillin Sod/Tazobactam (Sod 3.375 gm/ Sodium Chloride) 100 mls @ 200 mls/hr IV Q6H [facility] Last Infusion: 08/05/20 09:45 Dose: Infused Documented by: Iopamidol (Isovue-300 (61%)) 100 ml IVPUSH ONETIME ONE Stop: 08/03/20 09:41 Last Admin: 08/03/20 10:24 Dose: 98 ml Documented by: Lisinopril (Prinivil) 10 mg PO DAILY [facility] Non-Formulary Medication (Duloxetine [Cymbalta]) 20 mg PO BID MELINDA - Exam General: Alert, Oriented, Cooperative Lungs: Clear to Auscultation, Normal Respiratory Effort Cardiovascular: Regular Rate, Regular Rhythm GI/Abdominal Exam: Normal Bowel Sounds, Soft, Non-Tender, No Organomegaly, No Distention, No Abnormal Bruit, No Mass, Pelvis Stable Extremities: Other (Right elbow is still swollen and reddish.) Sepsis Event Note - Evaluation Sepsis Screening Result: No Definite Risk - Focused Exam Vital Signs: Vital Signs Temp Pulse Resp BP BP Pulse Ox 08/05/20 09:12 141/86 H 08/05/20 07:48 35.9 C L 78 20 141/86 H 98 08/05/20 04:00 36.7 C 73 20 132/67 97 08/05/20 00:00 37.0 C 72 20 123/55 L 98 - Problem List Review Problem List Initiated/Reviewed/Updated: Yes - My Orders Last 24 Hours: My Active Orders 08/06/20 12:30 VANCOMYCIN TROUGH [CHEM] Timed - Plan Plan:: Is a 44-year-old female with medical history of hypertension, diabetes mellitus type 2, history of intravenous drug use who was admitted with cellulitis of the right arm. Patient was started on intravenous vancomycin and Zosyn. #. Cellulitis of the right arm This is probably due to intravenous drug use #. Sepsis Patient presented with leukocytosis white count of 17,000. Lactic acid has been elevated Likely due to Staphylococcus or Streptococcus Plan: I did proceed to obtain ultrasound of the right upper extremity. No evidence of DVT. There may be a small hematoma at the right elbow because of IV drug use. Continue intravenous vancomycin Patient may need to be discharged on oral antibiotics Linezolid or clindamycin. I will feel more comfortable with linezolid.
[2020-08-06] MEDS: oxyCODONE 5 MG Tab PO PRN ×3 (03:11→12:06)
[2020-08-06 07:22] VITALS: BP 121/73; PULSE 68
[2020-08-06] MEDS: Insulin Lispro 100 Units/ML 3 ML Vial SUBCUT SCH ×2 (08:03→12:03)
[2020-08-06] MEDS: Glimepiride 2 MG Tab PO SCH (08:55)
[2020-08-06] MEDS: DULoxetine 30 MG Cap PO SCH (08:56)
[2020-08-06] MEDS: Lisinopril 20 MG Tab PO SCH (08:56)
[2020-08-06] MEDS: atorvaSTATin 20 MG Tab PO SCH (08:56)
[2020-08-06] MEDS: Gabapentin 300 MG Cap PO SCH (08:57)
[2020-08-06] MEDS: Nicotine 21 MG/24 Hr Patch TRDERM SCH (08:57)
[2020-08-06] MEDS: Enoxaparin 40 MG/0.4 ML Syringe SUBCUT SCH (08:58)
--- NOTE | 2020-08-06 10:23 | PCM.DCSUM1 ---
Discharge Summary - Hospital Course Free Text/Narrative:: Is a 44-year-old female with medical history of hypertension, diabetes mellitus type 2, history of intravenous drug use who was admitted with cellulitis of the right arm. Patient was started on intravenous vancomycin and Zosyn. Gradually the redness has improved. Blood cultures remained negative. Patient to be discharged on oral antibiotics #. Cellulitis of the right arm This is probably due to intravenous drug use #. Sepsis Patient presented with leukocytosis white count of 17,000. Lactic acid was elevated Likely due to Staphylococcus or Streptococcus. However cultures have been negative. Diagnosis: Stroke: No - Discharge Data Discharge Date: 08/06/20 Discharge Disposition: Home, Self-Care 01 Condition: Stable - Referral to Home Health Primary Care Physician: Jarred Sanchez NP - Patient Instructions Driving: May Drive Today Showering/Bathing: May Shower Notify Provider of: Fever, Increased Pain, Swelling and Redness Other/Special Instructions: F/up with PMD in one week - Discharge Plan *PRESCRIPTION DRUG MONITORING PROGRAM REVIEWED*: No *COPY OF PRESCRIPTION DRUG MONITORING REPORT IN PATIENT DANNIELLE: No Prescriptions/Med Rec: Linezolid 600 mg PO BID 10 Days #20 tablet oxyCODONE 5 mg PO Q4H PRN #30 tablet PRN Reason: Pain (Moderate 4-6) Home Medications: Home Meds Gabapentin 600 mg PO TID 04/30/15 [History] Lisinopril 20 mg PO DAILY 04/30/15 [History] Glimepiride 2 mg PO BID 08/02/20 [History] Aspirin 81 mg PO DAILY 08/03/20 [History] DULoxetine [Cymbalta] 60 mg PO DAILY 08/03/20 [History] atorvaSTATin [Lipitor] 20 mg PO DAILY 08/03/20 [History] Linezolid 600 mg PO BID 10 Days #20 tablet 08/06/20 [Rx] oxyCODONE 5 mg PO Q4H PRN #30 tablet 08/06/20 [Rx] Referrals: Jarred Sanchez NP [Primary Care Provider] - - Discharge Summary/Plan Comment DC Time >30 min.: No - Review of Systems General: Reports: No Symptoms Pulmonary: Reports: No Symptoms Cardiovascular: Reports: No Symptoms Musculoskeletal: Reports: Arm Pain Skin: Reports: Other (Mild erythema over the right elbow) - Patient Data Vitals - Most Recent: Last Vital Signs Temp 36.0 C L 08/06/20 07:21 Pulse 68 08/06/20 07:21 Resp 16 08/06/20 07:21 BP 121/73 08/06/20 08:56 Pulse Ox 97 08/06/20 07:21 Weight - Most Recent: 102.512 kg I&O - Last 24 hours: Intake & Output 08/05/20 08/06/20 08/06/20 22:59 06:59 14:59 Intake Total 1635 1220 900 Balance 1635 1220 900 Lab Results - Last 24 hrs: Laboratory Results - last 24 hr 08/05/20 08/05/20 08/05/20 Range/Units 11:25 16:54 20:36 POC Glucose 138 H 192 H 156 H (70-105) mg/dl 08/06/20 Range/Units 07:37 POC Glucose 147 H (70-105) mg/dl PARAS Results - Last 24 hrs: Microbiology 08/03/20 08:20 Aerobic Blood Culture - Preliminary Blood - Arm, Left NO GROWTH AFTER 3 DAYS Anaerobic Blood Culture - Preliminary NO GROWTH AFTER 3 DAYS 08/03/20 08:12 Aerobic Blood Culture - Preliminary Blood - Arm, Left NO GROWTH AFTER 3 DAYS Anaerobic Blood Culture - Preliminary NO GROWTH AFTER 3 DAYS Med Orders - Current: Current Medications Acetaminophen (Tylenol) 650 mg PO Q4H PRN PRN Reason: Pain (Mild 1-3)/fever Atorvastatin Calcium (Lipitor) 20 mg PO DAILY [facility] Last Admin: 08/06/20 08:56 Dose: 20 mg Documented by: Dextrose/Water (Dextrose 50% In Water) 50 ml IV ASDIRECTED PRN PRN Reason: Hypoglycemia Docusate Sodium (Colace) 100 mg PO BID PRN PRN Reason: Constipation Duloxetine HCl (Cymbalta) 60 mg PO DAILY [facility] Last Admin: 08/06/20 08:56 Dose: 60 mg Documented by: Enoxaparin Sodium (Lovenox) 40 mg SUBCUT DAILY [facility] Last Admin: 08/06/20 08:58 Dose: Not Given Documented by: Gabapentin (Neurontin) 600 mg PO TID [facility] Last Admin: 08/06/20 08:57 Dose: 600 mg Documented by: Glimepiride (Amaryl) 2 mg PO DAILY [facility] Last Admin: 08/06/20 08:55 Dose: 2 mg Documented by: Glucagon (Glucagen) 1 mg IM ASDIRECTED PRN PRN Reason: Hypoglycemia Vancomycin HCl 1.25 gm/ Sodium (Chloride) 250 mls @ 166.667 mls/hr IV Q8H [facility] Last Admin: 08/06/20 04:38 Dose: 166 mls/hr Documented by: Influenza Virus Vaccine (Pharmacy To Dose - Influenza Vaccine) 1 each IM DAILY PRN PRN Reason: discharge Insulin Human Lispro (Humalog) 0 unit SUBCUT TIDMEALS [facility]; Protocol Last Admin: 08/06/20 08:03 Dose: Not Given Documented by: Lisinopril (Prinivil) 20 mg PO DAILY [facility] Last Admin: 08/06/20 08:56 Dose: 20 mg Documented by: Miscellaneous Information (Remove Patch) 1 ea TRDERM DAILY [facility] Last Admin: 08/06/20 08:58 Dose: Not Given Documented by: Nicotine (Habitrol) 21 mg TRDERM DAILY [facility] Last Admin: 08/06/20 08:57 Dose: Not Given Documented by: Ondansetron HCl (Zofran Odt) 4 mg PO Q4H PRN PRN Reason: nausea, able to take PO Oxycodone HCl (Oxycodone) 5 mg PO Q4H PRN PRN Reason: Pain (moderate 4-6) Last Admin: 08/06/20 08:01 Dose: 5 mg Documented by: Vancomycin HCl (Pharmacy To Dose - Vancomycin) 1 dose .XX ASDIRECTED [facility] Discontinued Medications Aspirin (Aspirin) 81 mg PO ONETIME ONE Stop: 08/03/20 17:25 Last Admin: 08/03/20 18:16 Dose: 81 mg Documented by: Piperacillin Sod/Tazobactam (Sod 3.375 gm/ Sodium Chloride) 100 mls @ 200 mls/hr IV ONETIME ONE Stop: 08/03/20 10:50 Last Admin: 08/03/20 10:38 Dose: 200 mls/hr Documented by: Sodium Chloride (Normal Saline) 1,000 mls @ 125 mls/hr IV ASDIRECTED [facility] Last Admin: 08/05/20 04:06 Dose: 125 mls/hr Documented by: Piperacillin Sod/Tazobactam (Sod 3.375 gm/ Sodium Chloride) 100 mls @ 200 mls/hr IV Q6H [facility] Last Infusion: 08/05/20 09:45 Dose: Infused Documented by: Iopamidol (Isovue-300 (61%)) 100 ml IVPUSH ONETIME ONE Stop: 08/03/20 09:41 Last Admin: 08/03/20 10:24 Dose: 98 ml Documented by: Lisinopril (Prinivil) 10 mg PO DAILY [facility] Non-Formulary Medication (Duloxetine [Cymbalta]) 20 mg PO BID [facility] - Exam General: Reports: Alert, Oriented, Cooperative Neck: Reports: Supple Lungs: Reports: Clear to Auscultation, Normal Respiratory Effort Cardiovascular: Reports: Regular Rate, Regular Rhythm GI/Abdominal Exam: Normal Bowel Sounds, Soft, Non-Tender, No Organomegaly, No Distention, No Abnormal Bruit, No Mass, Pelvis Stable Extremities: Normal Inspection, Normal Range of Motion, Non-Tender, No Pedal Edema, Normal Capillary Refill, Other (Mild erythema over the right elbow.)
[2020-08-06] MEDS ORDERED: FLU Vacc QS2020-21 36MOS UP/PF 60 MCG/0.5 ML Syringe IM ONE (11:45)
== END 2020-08-06 14:10 | disposition home or self-care (01) | DRG 867 ==
LOC: DL.ED 07:39 → DL.MS 11:00 → UNDOADMIN 11:01
PROVIDERS: ADMIT Internal Medicine; ATTEND Hospitalist
DX: T80.29XA Infection following other infusion, transfusion and therapeutic injection, initial encounter (principal); A40.9 Streptococcal sepsis, unspecified; A41.2 Sepsis due to unspecified staphylococcus; M79.601 Pain in right arm; L03.113 Cellulitis of right upper limb; E11.42 Type 2 diabetes mellitus with diabetic polyneuropathy; E78.00 Pure hypercholesterolemia, unspecified; I10 Essential (primary) hypertension; M19.90 Unspecified osteoarthritis, unspecified site; E11.40 Type 2 diabetes mellitus with diabetic neuropathy, unspecified; Z87.01 Personal history of pneumonia (recurrent); Z79.84 Long term (current) use of oral hypoglycemic drugs; Z79.899 Other long term (current) drug therapy; Z20.828 Contact with and (suspected) exposure to other viral communicable diseases
CPT/HCPCS: 36415; 73201; 80053; 83605; 85025; 86140; 87040 ×2; 87635; 96365; 99284 ×2; J2543; J7050; Q9967; 80048; 80202; 82962; 85027; 90686; 93971; A9270-GY; G0008; J1815-GY; J3370; J7030; U0002

== ENCOUNTER 2021-06-13 14:08 | Emergency (ER) | payer MEDICAID ==
[2021-06-13 14:43] VITALS: BP 153/90; PULSE 96
--- NOTE | 2021-06-13 17:50 | EDM.PDOC ---
ED HPI GENERAL MEDICAL PROBLEM - General Chief Complaint: Upper Extremity Injury/Pain Stated Complaint: SORE ON ARM Time Seen by Provider: 06/13/21 17:46 Source of Information: Reports: Patient History Limitations: Reports: No Limitations - History of Present Illness INITIAL COMMENTS - FREE TEXT/NARRATIVE: 45 y/o F c/o hard lumo in her R AC. Pt states that the area was swollen and red last week but then it went down on its own and what is left is a hard lump under the skin. 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 No reported meth use in years. Denies fever, cough, chills, drugs, etoh. - Related Data Allergies Allergy/AdvReac Type Severity Reaction Status Date / Time metformin Allergy Diarrhea Verified 06/13/21 14:40 Home Meds: Home Meds Gabapentin 600 mg PO TID 04/30/15 [History] Lisinopril 30 mg PO DAILY 04/30/15 [History] Glimepiride 4 mg PO DAILY 08/02/20 [History] Aspirin 81 mg PO DAILY 08/03/20 [History] DULoxetine [Cymbalta] 60 mg PO DAILY 08/03/20 [History] atorvaSTATin [Lipitor] 20 mg PO DAILY 08/03/20 [History] Linezolid 600 mg PO BID 10 Days #20 tablet 08/06/20 [Rx] oxyCODONE 5 mg PO Q4H PRN #30 tablet 08/06/20 [Rx] Capsaicin 1 squirt TOP ASDIRECTED 05/05/21 [History] Diclofenac Sodium [Voltaren] 50 mg PO TID 05/05/21 [History] Empagliflozin [Jardiance] 10 mg PO DAILY 05/05/21 [History] Ergocalciferol (Vitamin D2) [Vitamin D2] 50,000 units PO WEEKLY 05/05/21 [History] Insulin Glarg,Human.Rec.Analog [Lantus] 15 unit SUBCUT BEDTIME 05/05/21 [History] Nicotine [Nicotine Patch] 1 patch TOP Q24H 05/05/21 [History] methocarbamoL [Robaxin] 500 mg PO BID 05/05/21 [History] oxyCODONE HCl/Acetaminophen [Endocet 5-325 Tablet] 1 tab PO Q8H 05/05/21 [History] Past Medical History - Past Health History Medical/Surgical History: Denies Medical/Surgical History HEENT History: Reports: None Cardiovascular History: Reports: High Cholesterol, Hypertension Respiratory History: Reports: Pneumonia, Recurrent Gastrointestinal History: Reports: None Genitourinary History: Reports: None [employer] History: Reports: Musculoskeletal History: Reports: Arthritis Neurological History: Reports: Neuropathy, Diabetic Psychiatric History: Reports: Depression Endocrine/Metabolic History: Reports: Diabetes, Type II Hematologic History: Reports: None Immunologic History: Reports: None Oncologic (Cancer) History: Reports: None Dermatologic History: Reports: None - Infectious Disease History Infectious Disease History: Reports: Novel Coronavirus Other Infectious Disease History: Bacteremia, 2018 - Past Surgical History Head Surgeries/Procedures: Reports: None HEENT Surgical History: Reports: None Cardiovascular Surgical History: Reports: None Respiratory Surgical History: Reports: None GI Surgical History: Reports: None Female Surgical History: Reports: Section, LEEP Musculoskeletal Surgical History: Reports: Carpal Tunnel, Other (See Below) Other Musculoskeletal Surgeries/Procedures:: had carpal tunnel surgery, foot surgery Social & Family History - Family History Family Medical History: No Pertinent Family History - Tobacco Use Tobacco Use Status *Q: Current Every Day Tobacco User Years of Tobacco use: 5 Packs/Tins Daily: 0.5 - Caffeine Use Caffeine Use: Reports: Coffee - Alcohol Use Days Per Week of Alcohol Use: 1 Number of Drinks Per Day: 10 Total Drinks Per Week: 10 - Recreational Drug Use Recreational Drug Use: Yes Drug Use in Last 12 Months: Yes Recreational Drug Type: Reports: Marijuana/Hashish, Methamphetamine Recreational Drug Use Frequency: Daily - Living Situation & Occupation Living situation: Reports: Occupation: Employed Review of Systems - Review of Systems Review Of Systems: Comprehensive ROS is negative, except as noted in HPI. ED EXAM, GENERAL - Physical Exam Exam: See Below General Appearance: Alert Respiratory/Chest: No Respiratory Distress, Lungs Clear, Normal Breath Sounds, No Accessory Muscle Use, Chest Non-Tender Cardiovascular: Normal Peripheral Pulses, Regular Rate, Rhythm, No Edema, No Gallop, No JVD, No Murmur, No Rub Extremities: Other (Firm non fluctuant 2cm elongated mass in AC. No redness, swelling or draining.) Course - Vital Signs Last Recorded V/S: Last Vital Signs Temp 97.3 F 06/13/21 14:30 Pulse 96 10/25/21 14:30 Resp 20 06/13/21 14:30 BP 153/90 H 06/13/21 14:30 Pulse Ox 98 06/13/21 14:30 - Re-Assessments/Exams Free Text/Narrative Re-Assessment/Exam: 06/13/21 17:48 I discussed the exam with the pt and informed her that the area in question shearer not warrant I and D and is not currently appearing infected. She understood that she will have scar tissue there from where her previous abscess was excised years ago. Departure - Departure Time of Disposition: 17:49 Disposition: Home, Self-Care 01 Condition: Good Clinical Impression: Scar tissue - Discharge Information *PRESCRIPTION DRUG MONITORING PROGRAM REVIEWED*: Not Applicable *COPY OF PRESCRIPTION DRUG MONITORING REPORT IN PATIENT DANNIELLE: Not Applicable Referrals: Troy Randle [Primary Care Provider] - Forms: ED Department Discharge Additional Instructions: If any redness, swelling, drainage reoccurs contact your primary care facility or return to the ER. Sepsis Event Note (ED) - Evaluation Sepsis Screening Result: No Definite Risk - Focused Exam Vital Signs: Vital Signs Temp Pulse Resp BP Pulse Ox 06/13/21 14:30 97.3 F 96 20 153/90 H 98
== END 2021-06-13 17:54 | disposition home or self-care (01) ==
LOC: DL.ED 14:08
DX: L90.5 Scar conditions and fibrosis of skin (principal); E78.00 Pure hypercholesterolemia, unspecified; I10 Essential (primary) hypertension; M19.90 Unspecified osteoarthritis, unspecified site; E11.40 Type 2 diabetes mellitus with diabetic neuropathy, unspecified; Z72.0 Tobacco use; Z88.8 Allergy status to other drugs, medicaments and biological substances; Z79.82 Long term (current) use of aspirin; Z79.4 Long term (current) use of insulin; Z79.899 Other long term (current) drug therapy
CPT/HCPCS: 99282

== ENCOUNTER 2021-08-05 19:56 | Emergency (ER) | payer MEDICAID ==
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
[2021-08-05 20:50] VITALS: PULSE 82
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
[2021-08-05 21:40] VITALS: BP 115/93
== END 2021-08-05 21:30 | disposition home or self-care (01) ==
LOC: DL.ED 19:56
DX: S60.041A Contusion of right ring finger without damage to nail, initial encounter (principal); S60.051A Contusion of right little finger without damage to nail, initial encounter; E78.00 Pure hypercholesterolemia, unspecified; I10 Essential (primary) hypertension; E11.9 Type 2 diabetes mellitus without complications; Z88.8 Allergy status to other drugs, medicaments and biological substances; Z79.4 Long term (current) use of insulin; Z79.899 Other long term (current) drug therapy; Z86.16 Personal history of COVID-19; Z72.0 Tobacco use; Y04.0XXA Assault by unarmed brawl or fight, initial encounter
CPT/HCPCS: 73130-RT; 99283-25

== ENCOUNTER 2021-08-23 05:36 | Emergency (ER) | payer MEDICAID ==
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
[2021-08-23] MEDS ORDERED: Bacitracin Oint 1 GM U/D Packet TOP ONE (06:02)
[2021-08-23 06:42] VITALS: BP 165/92; PULSE 99
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
== END 2021-08-23 06:15 | disposition home or self-care (01) ==
LOC: DL.ED 05:36
DX: S60.042A Contusion of left ring finger without damage to nail, initial encounter (principal); E11.9 Type 2 diabetes mellitus without complications; E78.00 Pure hypercholesterolemia, unspecified; I10 Essential (primary) hypertension; E11.40 Type 2 diabetes mellitus with diabetic neuropathy, unspecified; Z79.82 Long term (current) use of aspirin; Z88.8 Allergy status to other drugs, medicaments and biological substances; Z79.899 Other long term (current) drug therapy; Z79.4 Long term (current) use of insulin; W22.09XA Striking against other stationary object, initial encounter
CPT/HCPCS: 73130-LT; 99283-25

== ENCOUNTER 2022-05-01 19:25 | Emergency (ER) | payer MEDICAID ==
[2022-05-01 19:25] VITALS: PULSE 125
[2022-05-01 20:20] LABS: ANION GAP 16.9 mEq/L (7-13)
[2022-05-01] MEDS ORDERED: Nitroglycerin 0.4 MG Tab.SL SL ONE (20:38)
[2022-05-01] MEDS ORDERED: Aspirin 325 MG Tab.EC PO ONE (20:38)
[2022-05-01] MEDS ORDERED: Aspirin 81 MG Tab.Chew PO ONE (20:40)
[2022-05-01] MEDS ORDERED: Sodium Chloride 0.9% 1,000 ML IV ONE (20:40)
[2022-05-01] MEDS ORDERED: Magnesium Sulfate/Water 2 GM in Premix Bag 1 BAG IV ONE (20:41)
[2022-05-01 20:54] VITALS: BP 160/102
[2022-05-01] MEDS ORDERED: LORazepam 2 MG/ML SDV IVPUSH ONE (22:56)
[2022-05-01 23:35] LABS: AMPHETAMINES,URINE POSITIVE (NEGATIVE); BARBITURATES,URINE NEGATIVE (NEGATIVE); BENZODIAZEPINE,URINE NEGATIVE (NEGATIVE); MDMA (ECSTASY), URINE POSITIVE (NEGATIVE); METHADONE,URINE NEGATIVE (NEGATIVE); METHAMPHETAMINES,URINE POSITIVE (NEGATIVE); OPIATES,URINE NEGATIVE (NEGATIVE); OXYCODONE,URINE NEGATIVE (NEGATIVE); PHENCYCLIDINE,URINE NEGATIVE (NEGATIVE); TCA,URINE NEGATIVE (NEGATIVE)
[2022-05-01] MEDS ORDERED: cefTRIAXone 1 GM in Sodium Chloride 0.9% 50 ML IV ONE (23:37)
== END 2022-05-02 00:16 | disposition home or self-care (01) ==
LOC: DL.ED 19:25
DX: N39.0 Urinary tract infection, site not specified (principal); E78.00 Pure hypercholesterolemia, unspecified; I10 Essential (primary) hypertension; E11.9 Type 2 diabetes mellitus without complications; F17.210 Nicotine dependence, cigarettes, uncomplicated; Z86.16 Personal history of COVID-19; Z88.8 Allergy status to other drugs, medicaments and biological substances; Z79.82 Long term (current) use of aspirin; Z79.899 Other long term (current) drug therapy; Z79.4 Long term (current) use of insulin
CPT/HCPCS: 36415; 70450; 80053; 80305-QW; 80307; 81001; 83605; 83735; 84443; 84484; 85025; 85379; 85610; 87040; 87086; 87088; 87186; 93005; 93010; 96361; 96365; 96366; 96367; 99284; 99285-25; A9270-GY; J0696; J2060; J3475; J7030

== ENCOUNTER 2022-07-13 23:43 | Emergency (ER) | payer MEDICAID ==
[2022-07-13 23:59] VITALS: BP 142/97; PULSE 89
[2022-07-14 00:46] LABS: CHLORIDE,CL 100 mmol/L (98-107); SODIUM,NA 136 mmol/L (136-145)
[2022-07-14 00:49] LABS: ESTIMATED GFR 80 mL/min (>=60)
[2022-07-14] MEDS ORDERED: hydrOXYzine HCl 25 MG Tab PO ONE (00:52)
[2022-07-14 01:01] LABS: CORONAVIRUS COVID-19 NAA NEGATIVE (NEGATIVE)
== END 2022-07-14 01:12 | disposition home or self-care (01) ==
LOC: DL.ED 23:43
DX: R07.89 Other chest pain (principal); F41.9 Anxiety disorder, unspecified; E78.00 Pure hypercholesterolemia, unspecified; I10 Essential (primary) hypertension; F17.210 Nicotine dependence, cigarettes, uncomplicated; Z88.8 Allergy status to other drugs, medicaments and biological substances; Z79.899 Other long term (current) drug therapy; Z79.82 Long term (current) use of aspirin; Z20.822 Contact with and (suspected) exposure to COVID-19
CPT/HCPCS: 0240U; 36415; 71045; 80053; 80307; 82150; 83605; 83690; 83735; 84484; 85025; 93005; 99285; A9270

== ENCOUNTER 2023-02-26 02:51 | Emergency (ER) | payer MEDICAID ==
[2023-02-26] MEDS ORDERED: Lidocaine 1% 5 ML VIAL INJECT ONE ×2 (03:16→04:51)
[2023-02-26 03:19] VITALS: PULSE 88
[2023-02-26] MEDS ORDERED: Diphtheria,Pertussis(Acell),Tetanus Vaccine 0.5 ML Syringe IM ONE (05:37)
[2023-02-26 05:55] VITALS: BP 112/65
== END 2023-02-26 05:55 | disposition home or self-care (01) ==
LOC: DL.ED 02:51
DX: S61.221A Laceration with foreign body of left index finger without damage to nail, initial encounter (principal); S61.227A Laceration with foreign body of left little finger without damage to nail, initial encounter; T74.91XA Unspecified adult maltreatment, confirmed, initial encounter; E78.00 Pure hypercholesterolemia, unspecified; I10 Essential (primary) hypertension; E10.9 Type 1 diabetes mellitus without complications; Z86.16 Personal history of COVID-19; Z88.8 Allergy status to other drugs, medicaments and biological substances; Z79.899 Other long term (current) drug therapy; Z72.0 Tobacco use; Z23 Encounter for immunization; W25.XXXA Contact with sharp glass, initial encounter
CPT/HCPCS: 12002; 90471; 90715; 99283; 99283-25; J3490

== ENCOUNTER 2023-11-16 16:49 | Emergency (ER) | payer MEDICAID ==
[2023-11-16 17:13] VITALS: BP 150/91; PULSE 126
[2023-11-16] MEDS: Lidocaine 1% with EPINEPHrine 1:100,000 20 ML MDV INJECT ONE (17:40)
== END 2023-11-16 17:45 | disposition home or self-care (01) ==
LOC: DL.ED 16:49
DX: S51.811A Laceration without foreign body of right forearm, initial encounter (principal); E11.40 Type 2 diabetes mellitus with diabetic neuropathy, unspecified; I10 Essential (primary) hypertension; E78.00 Pure hypercholesterolemia, unspecified; M19.90 Unspecified osteoarthritis, unspecified site; Z86.16 Personal history of COVID-19; Z79.82 Long term (current) use of aspirin; Z79.84 Long term (current) use of oral hypoglycemic drugs; Z79.4 Long term (current) use of insulin; Z79.899 Other long term (current) drug therapy; Z88.8 Allergy status to other drugs, medicaments and biological substances; W26.8XXA Contact with other sharp object(s), not elsewhere classified, initial encounter
CPT/HCPCS: 12002; 99282; J3490

== ENCOUNTER 2024-02-13 23:32 | Emergency (ER) | payer MEDICAID ==
[2024-02-14] MEDS ORDERED: Aspirin 81 MG Tab.Chew PO ONE (00:05)
[2024-02-14 00:13] LABS: BASOPHILS PERCENT AUTO 0.2 % (0.0-1.0); EOSINOPHILS PERCENT AUTO 0.6 % (1.0-3.0); HEMATOCRIT 44.3 % (37.0-47.0); HEMOGLOBIN 15.7 g/dL (12.0-16.0); LYMPHOCYTES PERCENT AUTO 17.7 % (20.5-50.1); MEAN CORPUSCULAR HEMOGLOBIN 33.3 pg (27.0-34.0); MEAN CORPUSCULAR HGB CONC 35.4 g/dL (33.0-35.0); MEAN CORPUSCULAR VOLUME 94.1 fL (80-100); NEUTROPHILS PERCENT AUTO 72.5 % (42.2-75.2); PLATELET COUNT,PLT 276 10^3/uL (150-450); RED BLOOD CELL COUNT 4.71 10^6/uL (4.2-5.4); WHITE BLOOD CELL COUNT,WBC 15.9 10^3/uL (5.0-10.0)
[2024-02-14] MEDS: Aspirin 81 MG Tab.Chew PO ONE ×3 (00:23→00:39)
[2024-02-14] MEDS: Sodium Chloride 0.9% 1,000 ML IV ONE ×2 (00:23→02:17)
[2024-02-14 00:27] LABS: ANION GAP 19.9 mEq/L (7-13); CALCIUM 9.4 mg/dL (8.5-10.1); CREATININE 4.4 mg/dL (0.55-1.02); EST CRCL DRUG DOSING (CG) 14.32 mL/min; POTASSIUM,K 2.9 mmol/L (3.5-5.1)
[2024-02-14] MEDS: Potassium Chloride 10 MEQ Tab.ER PO ONE (01:40)
[2024-02-14 02:02] VITALS: BP 107/70; PULSE 101
[2024-02-14] MEDS ORDERED: Haloperidol Lactate 5 MG/ML SDV IVPUSH ONE (02:37)
[2024-02-14 02:44] LABS: APPEARANCE,URINE SLIGHTLY CLOUDY (CLEAR); BILIRUBIN,URINE SMALL (NEGATIVE); COLOR,URINE YELLOW (YELLOW); GLUCOSE,URINE 500 (NEGATIVE); KETONES,URINE 15 (NEGATIVE); LEUKOCYTE ESTERASE,URINE NEGATIVE (NEGATIVE); NITRITE,URINE NEGATIVE (NEGATIVE); OCCULT BLOOD,URINE MODERATE (NEGATIVE); PH,URINE 5.5 (5.0-9.0); PROTEIN,URINE 100 (NEGATIVE); UROBILINOGEN,URINE 0.2 mg/dL (0.2-1.0)
[2024-02-14 02:55] LABS: AMORPHOUS SEDIMENT,URINE FEW /HPF (NOT SEEN); CALCIUM OXALATE CRYSTALS,URINE FEW /HPF (NOT SEEN); EPITHELIAL CELLS,URINE MANY /HPF (NOT SEEN); MUCUS,URINE FEW /LPF (NOT SEEN)
[2024-02-14 02:56] LABS: GRANULAR CASTS,URINE FEW; HYALINE CASTS,URINE FEW
[2024-02-14 02:59] LABS: BACTERIA,URINE FEW /HPF (0-FEW/HPF)
== END 2024-02-14 02:51 ==
LOC: DL.ED 23:32
DX: E11.65 Type 2 diabetes mellitus with hyperglycemia (principal); N17.9 Acute kidney failure, unspecified; E11.40 Type 2 diabetes mellitus with diabetic neuropathy, unspecified; E87.8 Other disorders of electrolyte and fluid balance, not elsewhere classified; I10 Essential (primary) hypertension; E78.00 Pure hypercholesterolemia, unspecified; Z86.16 Personal history of COVID-19; Z88.8 Allergy status to other drugs, medicaments and biological substances; Z79.82 Long term (current) use of aspirin; Z79.899 Other long term (current) drug therapy; Z79.84 Long term (current) use of oral hypoglycemic drugs; Z79.4 Long term (current) use of insulin
CPT/HCPCS: 36415; 70450; 80048; 81001; 84484; 85025; 85379; 93005; 96360; 96361; 99285; A9270; J7030

== ENCOUNTER 2024-03-02 00:37 | Emergency (ER) | payer MEDICAID ==
[2024-03-02] MEDS: hydrOXYzine HCl 25 MG Tab PO ONE (00:56)
[2024-03-02 00:58] VITALS: BP 117/88; PULSE 119
[2024-03-02 00:58] LABS: BASOPHILS PERCENT AUTO 0.2 % (0.0-1.0); EOSINOPHILS PERCENT AUTO 0.3 % (1.0-3.0); HEMATOCRIT 45.3 % (37.0-47.0); LYMPHOCYTES PERCENT AUTO 6.4 % (20.5-50.1); MEAN CORPUSCULAR HGB CONC 35.3 g/dL (33.0-35.0); MEAN CORPUSCULAR VOLUME 96.2 fL (80-100); MONOCYTES PERCENT AUTO 6.8 % (2-8); NEUTROPHILS PERCENT AUTO 86.3 % (42.2-75.2); PLATELET COUNT,PLT 266 10^3/uL (150-450); RED BLOOD CELL COUNT 4.71 10^6/uL (4.2-5.4)
[2024-03-02 01:12] LABS: A/G RATIO 0.8; ALBUMIN 3.9 g/dL (3.4-5.0); ANION GAP 16.5 mEq/L (7-13); BILIRUBIN TOTAL 1.6 mg/dL (0.2-1.0); BUN/CREATININE RATIO 5.9 (No establ ref range); CALCIUM 10.3 mg/dL (8.5-10.1); CREATININE 1.86 mg/dL (0.55-1.02); EST CRCL DRUG DOSING (CG) 33.87 mL/min; POTASSIUM,K 3.5 mmol/L (3.5-5.1); PROTEIN TOTAL,TP 8.5 g/dL (6.4-8.2)
[2024-03-02] MEDS: Lactated Ringers 1,000 ML IV SCH (01:19)
[2024-03-02 01:22] LABS: AMPHETAMINES,URINE POSITIVE (NEGATIVE); BARBITURATES,URINE NEGATIVE (NEGATIVE); BENZODIAZEPINE,URINE NEGATIVE (NEGATIVE); MDMA (ECSTASY), URINE NEGATIVE (NEGATIVE); METHADONE,URINE NEGATIVE (NEGATIVE); METHAMPHETAMINES,URINE POSITIVE (NEGATIVE); OPIATES,URINE NEGATIVE (NEGATIVE); OXYCODONE,URINE NEGATIVE (NEGATIVE); PHENCYCLIDINE,URINE NEGATIVE (NEGATIVE); TCA,URINE NEGATIVE (NEGATIVE)
[2024-03-02 01:37] LABS: APPEARANCE,URINE CLEAR (CLEAR); BILIRUBIN,URINE MODERATE (NEGATIVE); COLOR,URINE YELLOW (YELLOW); GLUCOSE,URINE 100 (NEGATIVE); KETONES,URINE 15 (NEGATIVE); LEUKOCYTE ESTERASE,URINE NEGATIVE (NEGATIVE); NITRITE,URINE NEGATIVE (NEGATIVE); OCCULT BLOOD,URINE TRACE-LYSED (NEGATIVE); PH,URINE 5.5 (5.0-9.0); PROTEIN,URINE 100 (NEGATIVE); UROBILINOGEN,URINE 0.2 mg/dL (0.2-1.0)
[2024-03-02 01:46] LABS: BACTERIA,URINE MODERATE /HPF (0-FEW/HPF); EPITHELIAL CELLS,URINE MODERATE /HPF (NOT SEEN); WBC,URINE 0-5 /HPF (0-5/HPF)
[2024-03-02] MEDS: Magnesium Sulfate/Water 2 GM in Premix Bag 1 BAG IV ONE (02:22)
[2024-03-02] MEDS: LORazepam 0.5 MG Tab PO ONE (02:38)
== END 2024-03-02 03:30 | disposition home or self-care (01) ==
LOC: DL.ED 00:37
DX: D72.829 Elevated white blood cell count, unspecified (principal); F15.120 Other stimulant abuse with intoxication, uncomplicated; E83.42 Hypomagnesemia; R17 Unspecified jaundice; E78.00 Pure hypercholesterolemia, unspecified; I10 Essential (primary) hypertension; E11.9 Type 2 diabetes mellitus without complications; Z86.16 Personal history of COVID-19; Z79.899 Other long term (current) drug therapy; Z79.4 Long term (current) use of insulin; Z79.82 Long term (current) use of aspirin; Z79.84 Long term (current) use of oral hypoglycemic drugs; Z88.8 Allergy status to other drugs, medicaments and biological substances
CPT/HCPCS: 36415; 80053; 80305; 81001; 83735; 85025; 93005; 96361; 96365; 99285; A9270; J3475; J7120

== ENCOUNTER 2024-04-01 11:27 | Emergency (ER) | payer MEDICAID ==
[2024-04-01 11:56] VITALS: BP 150/91; PULSE 104
[2024-04-01 12:22] LABS: HEMATOCRIT 40.3 % (37.0-47.0); HEMOGLOBIN 14.1 g/dL (12.0-16.0); MEAN CORPUSCULAR HEMOGLOBIN 35.2 pg (27.0-34.0); MEAN CORPUSCULAR VOLUME 100.5 fL (80-100); PLATELET COUNT,PLT 184 10^3/uL (150-450); RED BLOOD CELL COUNT 4.01 10^6/uL (4.2-5.4); WHITE BLOOD CELL COUNT,WBC 9.8 10^3/uL (5.0-10.0)
[2024-04-01 12:23] LABS: BASOPHILS PERCENT AUTO 0.9 % (0.0-1.0); EOSINOPHILS PERCENT AUTO 1.1 % (1.0-3.0); LYMPHOCYTES PERCENT AUTO 23.5 % (20.5-50.1); MONOCYTES PERCENT AUTO 16.5 % (2-8)
[2024-04-01 12:36] LABS: PROTHROMBIN TIME 10.4 SEC (9.0-12.0); PTT,PARTIAL THROMBOPLSTIN TIME 22.9 SEC (22.0-34.0)
[2024-04-01 12:43] LABS: ANION GAP 11.7 mEq/L (7-13); CALCIUM 9.6 mg/dL (8.5-10.1); CREATININE 0.87 mg/dL (0.55-1.02); EST CRCL DRUG DOSING (CG) 72.42 mL/min; POTASSIUM,K 3.7 mmol/L (3.5-5.1)
[2024-04-01 13:01] LABS: BAND PERCENT MAN 1 %; EOSINOPHILS PERCENT MAN 1 % (1-3); LYMPHOCYTES % ATYPICAL MANUAL 4 %; LYMPHOCYTES PERCENT MAN 21 % (20-50); MONOCYTES PERCENT MAN 13 % (2-8); SEG NEUTROPHILS PERCENT MAN 60 % (42-75)
== END 2024-04-01 12:55 | disposition left against medical advice (07) ==
LOC: DL.ED 11:27
DX: S90.122A Contusion of left lesser toe(s) without damage to nail, initial encounter (principal); I10 Essential (primary) hypertension; E11.9 Type 2 diabetes mellitus without complications; Z88.8 Allergy status to other drugs, medicaments and biological substances; Z79.82 Long term (current) use of aspirin; Z79.899 Other long term (current) drug therapy; Z86.16 Personal history of COVID-19; X50.1XXA Overexertion from prolonged static or awkward postures, initial encounter
CPT/HCPCS: 36415; 73660-T3; 80048; 85025; 85610; 85730; 99283

== ENCOUNTER 2024-04-10 01:00 | Emergency (ER) | payer MEDICARE, MEDICAID ==
[2024-04-10 01:23] LABS: BASOPHILS PERCENT AUTO 0.5 % (0.0-1.0); EOSINOPHILS PERCENT AUTO 4.4 % (1.0-3.0); HEMATOCRIT 37.3 % (37.0-47.0); HEMOGLOBIN 13.2 g/dL (12.0-16.0); LYMPHOCYTES PERCENT AUTO 30.8 % (20.5-50.1); MEAN CORPUSCULAR HEMOGLOBIN 35.8 pg (27.0-34.0); MEAN CORPUSCULAR HGB CONC 35.4 g/dL (33.0-35.0); MEAN CORPUSCULAR VOLUME 101.1 fL (80-100); MONOCYTES PERCENT AUTO 10.6 % (2-8); NEUTROPHILS PERCENT AUTO 53.7 % (42.2-75.2); PLATELET COUNT,PLT 122 10^3/uL (150-450); RED BLOOD CELL COUNT 3.69 10^6/uL (4.2-5.4); WHITE BLOOD CELL COUNT,WBC 7.3 10^3/uL (5.0-10.0)
[2024-04-10] MEDS: Sodium Chloride 0.9% 1,000 ML IV ONE ×2 (01:30→02:10)
[2024-04-10 01:37] LABS: A/G RATIO 0.78; ALBUMIN 2.8 g/dL (3.4-5.0); ANION GAP 16.8 mEq/L (7-13); BILIRUBIN TOTAL 0.6 mg/dL (0.2-1.0); BUN/CREATININE RATIO 3.8 (No establ ref range); CALCIUM 8.7 mg/dL (8.5-10.1); CREATININE 2.09 mg/dL (0.55-1.02); EST CRCL DRUG DOSING (CG) 30.15 mL/min; POTASSIUM,K 2.8 mmol/L (3.5-5.1); PROTEIN TOTAL,TP 6.4 g/dL (6.4-8.2)
[2024-04-10] MEDS: Sodium Chloride 0.9% 10 ML Syringe FLUSH PRN (01:39)
[2024-04-10] MEDS: Norepinephrine Bit/D5W Premix 250 ML IV SCH (01:43)
[2024-04-10 01:46] LABS: B-TYPE NATRIURETIC PEPTIDE,BNP 21 pg/ml (0-100)
[2024-04-10 02:05] LABS: APPEARANCE,URINE CLEAR (CLEAR); BILIRUBIN,URINE SMALL (NEGATIVE); COLOR,URINE YELLOW (YELLOW); GLUCOSE,URINE >=1000 (NEGATIVE); KETONES,URINE TRACE (NEGATIVE); LEUKOCYTE ESTERASE,URINE NEGATIVE (NEGATIVE); NITRITE,URINE NEGATIVE (NEGATIVE); OCCULT BLOOD,URINE MODERATE (NEGATIVE); PROTEIN,URINE 100 (NEGATIVE)
[2024-04-10 02:06] LABS: AMPHETAMINES,URINE NEGATIVE (NEGATIVE); BARBITURATES,URINE NEGATIVE (NEGATIVE); BENZODIAZEPINE,URINE NEGATIVE (NEGATIVE); MDMA (ECSTASY), URINE NEGATIVE (NEGATIVE); METHADONE,URINE NEGATIVE (NEGATIVE); METHAMPHETAMINES,URINE NEGATIVE (NEGATIVE); OPIATES,URINE NEGATIVE (NEGATIVE); OXYCODONE,URINE NEGATIVE (NEGATIVE); PHENCYCLIDINE,URINE NEGATIVE (NEGATIVE); TCA,URINE NEGATIVE (NEGATIVE)
[2024-04-10 02:17] LABS: BACTERIA,URINE FEW /HPF (0-FEW/HPF); EPITHELIAL CELLS,URINE FEW /HPF (NOT SEEN); HYALINE CASTS,URINE FEW; MUCUS,URINE MODERATE /LPF (NOT SEEN)
[2024-04-10] MEDS: Potassium Chloride 10 MEQ Tab.ER PO ONE (02:30)
[2024-04-10] MEDS: Lactated Ringers 1,000 ML IV ONE (02:54)
[2024-04-10 05:29] VITALS: BP 87/55; PULSE 60
== END 2024-04-10 07:08 | disposition home or self-care (01) ==
LOC: DL.ED 01:00
DX: I95.89 Other hypotension (principal); E86.1 Hypovolemia; F10.929 Alcohol use, unspecified with intoxication, unspecified; E87.6 Hypokalemia; N17.9 Acute kidney failure, unspecified; I10 Essential (primary) hypertension; E78.00 Pure hypercholesterolemia, unspecified; E11.40 Type 2 diabetes mellitus with diabetic neuropathy, unspecified; Z86.16 Personal history of COVID-19; Z79.899 Other long term (current) drug therapy; Z79.82 Long term (current) use of aspirin; Z79.84 Long term (current) use of oral hypoglycemic drugs; Z79.4 Long term (current) use of insulin; Z88.8 Allergy status to other drugs, medicaments and biological substances
CPT/HCPCS: 36415; 80053; 80305-QW; 80307; 81001; 81025; 83880; 84484; 85025; 87040; 93005; 93010; 96361; 96365; 96366; 99285-25; 99291; 99292; A9270-GY; C1758; J3490; J7030; J7120

== ENCOUNTER 2024-04-13 06:51 | Emergency (ER) | payer MEDICARE, MEDICAID ==
[2024-04-13 07:13] LABS: BASOPHILS PERCENT AUTO 0.5 % (0.0-1.0); EOSINOPHILS PERCENT AUTO 0.8 % (1.0-3.0); HEMATOCRIT 36.1 % (37.0-47.0); HEMOGLOBIN 12.6 g/dL (12.0-16.0); MEAN CORPUSCULAR HEMOGLOBIN 35.6 pg (27.0-34.0); MEAN CORPUSCULAR HGB CONC 34.9 g/dL (33.0-35.0); NEUTROPHILS PERCENT AUTO 78.7 % (42.2-75.2); PLATELET COUNT,PLT 134 10^3/uL (150-450); RED BLOOD CELL COUNT 3.54 10^6/uL (4.2-5.4); WHITE BLOOD CELL COUNT,WBC 11.1 10^3/uL (5.0-10.0)
[2024-04-13 07:40] LABS: A/G RATIO 0.9; ALBUMIN 3.4 g/dL (3.4-5.0); ANION GAP 15.7 mEq/L (7-13); BILIRUBIN TOTAL 0.7 mg/dL (0.2-1.0); CALCIUM 8.5 mg/dL (8.5-10.1); EST CRCL DRUG DOSING (CG) 63.01 mL/min; POTASSIUM,K 2.7 mmol/L (3.5-5.1); PROTEIN TOTAL,TP 7.4 g/dL (6.4-8.2)
[2024-04-13] MEDS: Nitroglycerin 0.4 MG Tab.SL SL ONE ×2 (07:55→08:58)
[2024-04-13 07:56] LABS: MAGNESIUM 0.9 mg/dL (1.8-2.4)
[2024-04-13 08:05] LABS: INR 1.1 (0.9-1.2); PROTHROMBIN TIME 11.3 SEC (9.0-12.0)
[2024-04-13] MEDS: Magnesium Sulfate/Water 2 GM in Premix Bag 1 BAG IV ONE ×2 (08:07→08:59)
[2024-04-13] MEDS: Potassium Chloride 10 MEQ Tab.ER PO ONE (08:55)
[2024-04-13 09:08] LABS: FOLIC ACID 3.3 ng/mL (8.6-58.9)
[2024-04-13 09:18] LABS: APPEARANCE,URINE SLIGHTLY CLOUDY (CLEAR); BILIRUBIN,URINE NEGATIVE (NEGATIVE); COLOR,URINE LIGHT YELLOW (YELLOW); GLUCOSE,URINE >=1000 (NEGATIVE); KETONES,URINE NEGATIVE (NEGATIVE); LEUKOCYTE ESTERASE,URINE TRACE (NEGATIVE); NITRITE,URINE NEGATIVE (NEGATIVE); OCCULT BLOOD,URINE TRACE-LYSED (NEGATIVE); PH,URINE 6.5 (5.0-9.0); PROTEIN,URINE NEGATIVE (NEGATIVE); UROBILINOGEN,URINE 0.2 mg/dL (0.2-1.0)
[2024-04-13 09:29] LABS: AMORPHOUS SEDIMENT,URINE FEW /HPF (NOT SEEN); AMPHETAMINES,URINE NEGATIVE (NEGATIVE); BACTERIA,URINE FEW /HPF (0-FEW/HPF); BARBITURATES,URINE NEGATIVE (NEGATIVE); BENZODIAZEPINE,URINE NEGATIVE (NEGATIVE); EPITHELIAL CELLS,URINE FEW /HPF (NOT SEEN); MDMA (ECSTASY), URINE NEGATIVE (NEGATIVE); METHADONE,URINE NEGATIVE (NEGATIVE); METHAMPHETAMINES,URINE POSITIVE (NEGATIVE); MUCUS,URINE MODERATE /LPF (NOT SEEN); OPIATES,URINE NEGATIVE (NEGATIVE); OXYCODONE,URINE NEGATIVE (NEGATIVE); PHENCYCLIDINE,URINE NEGATIVE (NEGATIVE); RBC,URINE 0-5 /HPF (0-5); TCA,URINE NEGATIVE (NEGATIVE); WBC,URINE 0-5 /HPF (0-5/HPF)
[2024-04-13] MEDS: Lisinopril 20 MG Tab PO ONE (10:18)
[2024-04-13] MEDS: Labetalol 20 MG/4 ML Syringe IVPUSH ONE (11:07)
[2024-04-13 11:27] LABS: MAGNESIUM 2.3 mg/dL (1.8-2.4); POTASSIUM,K 3.6 mmol/L (3.5-5.1)
[2024-04-13] MEDS ORDERED: amLODIPine 5 MG Tab PO ONE (11:53)
[2024-04-13] MEDS: hydrALAZINE 20 MG/ML SDV IVPUSH ONE (11:54)
[2024-04-13 12:17] VITALS: BP 167/92; PULSE 77
== END 2024-04-13 12:28 | disposition home or self-care (01) ==
LOC: DL.ED 06:51
DX: I16.0 Hypertensive urgency (principal); E87.6 Hypokalemia; E83.42 Hypomagnesemia; I10 Essential (primary) hypertension; E78.00 Pure hypercholesterolemia, unspecified; E11.40 Type 2 diabetes mellitus with diabetic neuropathy, unspecified; F17.210 Nicotine dependence, cigarettes, uncomplicated; Z79.899 Other long term (current) drug therapy; Z79.4 Long term (current) use of insulin; Z79.82 Long term (current) use of aspirin; Z88.8 Allergy status to other drugs, medicaments and biological substances
CPT/HCPCS: 36415; 71046; 80053; 80305; 81001; 82607; 82746; 83735; 83880; 84132; 84484; 85025; 85610; 87086; 93005; 96365; 96366; 96375; 99285; A9270; J0360; J1920; J3475; 93010; 99284

== ENCOUNTER 2024-04-24 11:39 | Emergency (ER) | payer MEDICARE, MEDICAID ==
[2024-04-24 10:43] LABS: BASOPHILS PERCENT AUTO 0.3 % (0.0-1.0); EOSINOPHILS PERCENT AUTO 0.4 % (1.0-3.0); HEMATOCRIT 39.9 % (37.0-47.0); HEMOGLOBIN 13.8 g/dL (12.0-16.0); LYMPHOCYTES PERCENT AUTO 7.6 % (20.5-50.1); MEAN CORPUSCULAR HGB CONC 34.6 g/dL (33.0-35.0); MEAN CORPUSCULAR VOLUME 104.2 fL (80-100); MONOCYTES PERCENT AUTO 5.4 % (2-8); NEUTROPHILS PERCENT AUTO 86.3 % (42.2-75.2); PLATELET COUNT,PLT 141 10^3/uL (150-450); RED BLOOD CELL COUNT 3.83 10^6/uL (4.2-5.4); WHITE BLOOD CELL COUNT,WBC 13.5 10^3/uL (5.0-10.0)
[2024-04-24 11:04] LABS: LACTIC ACID 1.4 mmol/L (0.4-2.0)
[2024-04-24 11:11] LABS: ALANINE AMINOTRANSFERASE,ALT 72 U/L (14-59); ALKALINE PHOSPHATASE 139 U/L (46-116); ANION GAP 14.3 mEq/L (7-13); ASPARTATE AMNIOTRANSFERASE,AST 272 U/L (15-37); BILIRUBIN TOTAL 1.7 mg/dL (0.2-1.0); BLOOD UREA NITROGEN,BUN 17 mg/dL (7-18); BUN/CREATININE RATIO 16.2 (No establ ref range); CALCIUM 9.4 mg/dL (8.5-10.1); CARBON DIOXIDE,CO2 24 mmol/L (21-32); CHLORIDE,CL 95 mmol/L (98-107); CREATININE 1.05 mg/dL (0.55-1.02); EST CRCL DRUG DOSING (CG) 60.01 mL/min; GLUCOSE RANDOM 220 mg/dL (70-99); LIPASE 125 U/L (16-77); MAGNESIUM 1.4 mg/dL (1.8-2.4); POTASSIUM,K 4.3 mmol/L (3.5-5.1); PROTEIN TOTAL,TP 8.1 g/dL (6.4-8.2); SODIUM,NA 129 mmol/L (136-145)
[2024-04-24 11:18] LABS: ESTIMATED GFR 65 mL/min (>=60)
[2024-04-24 11:26] LABS: APPEARANCE,URINE SLIGHTLY CLOUDY (CLEAR); BILIRUBIN,URINE SMALL (NEGATIVE); COLOR,URINE YELLOW (YELLOW); GLUCOSE,URINE 500 (NEGATIVE); KETONES,URINE 40 (NEGATIVE); LEUKOCYTE ESTERASE,URINE TRACE (NEGATIVE); NITRITE,URINE POSITIVE (NEGATIVE); OCCULT BLOOD,URINE MODERATE (NEGATIVE); PROTEIN,URINE 100 (NEGATIVE); UROBILINOGEN,URINE 0.2 mg/dL (0.2-1.0)
[2024-04-24 11:28] LABS: INR 1.1 (0.9-1.2); PTT,PARTIAL THROMBOPLSTIN TIME 23.2 SEC (22.0-34.0)
[2024-04-24] MEDS: Magnesium Sulfate/Water 2 GM in Premix Bag 1 BAG IV ONE ×2 (11:31→12:50)
[2024-04-24] MEDS: Sodium Chloride 0.9% 1,000 ML IV ONE (11:31)
[2024-04-24 11:33] LABS: AMPHETAMINES,URINE POSITIVE (NEGATIVE); BARBITURATES,URINE NEGATIVE (NEGATIVE); BENZODIAZEPINE,URINE NEGATIVE (NEGATIVE); MDMA (ECSTASY), URINE POSITIVE (NEGATIVE); METHADONE,URINE NEGATIVE (NEGATIVE); METHAMPHETAMINES,URINE POSITIVE (NEGATIVE); OPIATES,URINE NEGATIVE (NEGATIVE); OXYCODONE,URINE NEGATIVE (NEGATIVE); PHENCYCLIDINE,URINE NEGATIVE (NEGATIVE); TCA,URINE NEGATIVE (NEGATIVE)
[2024-04-24 11:38] LABS: BACTERIA,URINE MANY /HPF (0-FEW/HPF); EPITHELIAL CELLS,URINE MODERATE /HPF (NOT SEEN); WBC,URINE 50-75 /HPF (0-5/HPF)
[2024-04-24 11:39] LABS: MUCUS,URINE FEW /LPF (NOT SEEN)
[~2024-04-24 11:39] MED LIST changes: -Bupivacaine 0.5% 10 ML SDV ONE; +Iopamidol 612 MG/ML 100 ML Bottle IVPUSH ONE; -Lactated Ringers 1,000 ML IV SCH; -Lidocaine 1% 30 ML SDV ONE
[2024-04-24 11:54] LABS: FOLIC ACID 4.7 ng/mL (8.6-58.9); TSH ULTRASENSITIVE 1.43 uIU/mL (0.36-3.74)
[2024-04-24 11:58] LABS: C-REACTIVE PROTEIN < 0.50 ng/dL (<=0.50)
[2024-04-24] MEDS: Iopamidol 755 Mg/ML 100 ML Bottle IVPUSH ONE (11:59)
[2024-04-24] MEDS: Labetalol 20 MG/4 ML Syringe IVPUSH ONE (14:29)
[2024-04-24 14:48] VITALS: BP 148/94; PULSE 82
== END 2024-04-24 14:58 | disposition home or self-care (01) ==
LOC: DL.ED 11:39
DX: N39.0 Urinary tract infection, site not specified (principal); R31.9 Hematuria, unspecified; D75.89 Other specified diseases of blood and blood-forming organs; E53.8 Deficiency of other specified B group vitamins; R74.01 Elevation of levels of liver transaminase levels; E83.42 Hypomagnesemia; E87.1 Hypo-osmolality and hyponatremia; I10 Essential (primary) hypertension; E78.00 Pure hypercholesterolemia, unspecified; E11.40 Type 2 diabetes mellitus with diabetic neuropathy, unspecified; Z86.16 Personal history of COVID-19; Z79.82 Long term (current) use of aspirin; Z79.4 Long term (current) use of insulin; Z79.84 Long term (current) use of oral hypoglycemic drugs; Z79.899 Other long term (current) drug therapy; Z88.8 Allergy status to other drugs, medicaments and biological substances
CPT/HCPCS: 36415; 70450; 71275; 80053; 80305-QW; 80307; 81001; 82607; 82746; 83605; 83690; 83735; 84145; 84443; 84484; 84703; 85025; 85610; 85651; 85730; 86140; 87086; 93005; 93010; 96365; 96366; 96375; 99284; 99285-25; J1920; J3475; J7030; Q9967

== ENCOUNTER 2024-06-13 14:41 | Emergency (ER) | payer MEDICARE, MEDICAID ==
[2024-06-13 14:51] VITALS: BP 138/85; PULSE 103
[2024-06-13] MEDS: Ketorolac 30 MG/ML SDV IM ONE (15:06)
== END 2024-06-13 15:10 | disposition home or self-care (01) ==
LOC: DL.ED 14:41
DX: S39.92XA Unspecified injury of lower back, initial encounter (principal); I10 Essential (primary) hypertension; E11.9 Type 2 diabetes mellitus without complications; E78.00 Pure hypercholesterolemia, unspecified; M19.90 Unspecified osteoarthritis, unspecified site; Z86.16 Personal history of COVID-19; Z88.8 Allergy status to other drugs, medicaments and biological substances; Z79.4 Long term (current) use of insulin; Z79.82 Long term (current) use of aspirin; Z79.84 Long term (current) use of oral hypoglycemic drugs; Z79.899 Other long term (current) drug therapy; W10.8XXA Fall (on) (from) other stairs and steps, initial encounter
CPT/HCPCS: 82947; 96372; 99283; J1885

== ENCOUNTER 2024-09-29 19:25 | Emergency (ER) | payer MEDICARE, MEDICAID ==
[2024-09-29] MEDS: Iopamidol 612 MG/ML 100 ML Bottle IVPUSH ONE (19:35)
[2024-09-29 19:44] LABS: BASOPHILS PERCENT AUTO 0.6 % (0.0-1.0); EOSINOPHILS PERCENT AUTO 2.9 % (1.0-3.0); HEMATOCRIT 35.9 % (37.0-47.0); HEMOGLOBIN 11.7 g/dL (12.0-16.0); LYMPHOCYTES PERCENT AUTO 27.2 % (20.5-50.1); MEAN CORPUSCULAR HGB CONC 32.6 g/dL (33.0-35.0); MEAN CORPUSCULAR VOLUME 104.4 fL (80-100); MONOCYTES PERCENT AUTO 12.1 % (2-8); NEUTROPHILS PERCENT AUTO 57.2 % (42.2-75.2); PLATELET COUNT,PLT 256 10^3/uL (150-450); RED BLOOD CELL COUNT 3.44 10^6/uL (4.2-5.4); WHITE BLOOD CELL COUNT,WBC 11.1 10^3/uL (5.0-10.0)
[2024-09-29 20:04] LABS: A/G RATIO 0.59; ALANINE AMINOTRANSFERASE,ALT 36 U/L (14-59); ALBUMIN 2.6 g/dL (3.4-5.0); ALKALINE PHOSPHATASE 207 U/L (46-116); ASPARTATE AMNIOTRANSFERASE,AST 37 U/L (15-37); BILIRUBIN TOTAL 0.2 mg/dL (0.2-1.0); BLOOD UREA NITROGEN,BUN 12 mg/dL (7-18); BUN/CREATININE RATIO 12.2 (No establ ref range); CALCIUM 8.7 mg/dL (8.5-10.1); CARBON DIOXIDE,CO2 27 mmol/L (21-32); CHLORIDE,CL 108 mmol/L (98-107); CREATININE 0.98 mg/dL (0.55-1.02); ESTIMATED GFR 70 mL/min (>=60); ETHANOL BLOOD MEDICAL 275 mg/dL (0); GLUCOSE RANDOM 175 mg/dL (70-99); MAGNESIUM 2.3 mg/dL (1.8-2.4); SODIUM,NA 142 mmol/L (136-145)
[2024-09-30 01:13] VITALS: BP 100/72; PULSE 92
== END 2024-09-30 00:05 | disposition home or self-care (01) ==
LOC: DL.ED 19:25
DX: S00.11XA Contusion of right eyelid and periocular area, initial encounter (principal); I10 Essential (primary) hypertension; E78.00 Pure hypercholesterolemia, unspecified; M19.90 Unspecified osteoarthritis, unspecified site; E11.42 Type 2 diabetes mellitus with diabetic polyneuropathy; Z86.16 Personal history of COVID-19; Z88.8 Allergy status to other drugs, medicaments and biological substances; Z79.82 Long term (current) use of aspirin; Z79.4 Long term (current) use of insulin; Z79.899 Other long term (current) drug therapy; W10.9XXA Fall (on) (from) unspecified stairs and steps, initial encounter
CPT/HCPCS: 36415; 70450; 71275; 72125; 74174; 80053; 80307; 83735; 85025; 93005; 99285; Q9967; 93010; 99284

== ENCOUNTER 2025-02-06 19:09 | Emergency (ER) | payer MEDICARE, MEDICAID ==
[2025-02-06] MEDS: Sodium Chloride 0.9% 1,000 ML IV SCH (19:41)
[2025-02-06 19:43] LABS: BASOPHILS PERCENT AUTO 0.6 % (0.0-1.0); EOSINOPHILS PERCENT AUTO 4.8 % (1.0-3.0); HEMATOCRIT 38.6 % (37.0-47.0); HEMOGLOBIN 13.1 g/dL (12.0-16.0); LYMPHOCYTES PERCENT AUTO 25.1 % (20.5-50.1); MEAN CORPUSCULAR HEMOGLOBIN 35.6 pg (27.0-34.0); MEAN CORPUSCULAR HGB CONC 33.9 g/dL (33.0-35.0); MEAN CORPUSCULAR VOLUME 104.9 fL (80-100); MONOCYTES PERCENT AUTO 18.4 % (2-8); NEUTROPHILS PERCENT AUTO 51.1 % (42.2-75.2); PLATELET COUNT,PLT 256 10^3/uL (150-450); RED BLOOD CELL COUNT 3.68 10^6/uL (4.2-5.4); WHITE BLOOD CELL COUNT,WBC 6.8 10^3/uL (5.0-10.0)
[2025-02-06 20:11] LABS: BASE EXCESS VENOUS -0.9 mmol/l ((-2)-(+3)); BICARBONATE,VENOUS 24 mmol/l (19-25); O2 SATURATION VENOUS 64.1 % (60-80); PCO2 VENOUS 43 mmHg (41-51); PH,VENOUS 7.36 (7.31-7.41); PO2 VENOUS 44 mmHg (35-42)
[2025-02-06 20:12] LABS: O2 DELIVERY DEVICE NASAL CANNULA
[2025-02-06 20:14] LABS: A/G RATIO 0.8; ALBUMIN 3.6 g/dL (3.4-5.0); ANION GAP 14.6 mEq/L (7-13); BILIRUBIN TOTAL 0.5 mg/dL (0.2-1.0); BUN/CREATININE RATIO 13.2 (No establ ref range); CALCIUM 10.2 mg/dL (8.5-10.1); CREATININE 2.28 mg/dL (0.55-1.02); EST CRCL DRUG DOSING (CG) 27.33 mL/min; POTASSIUM,K 3.6 mmol/L (3.5-5.1)
[2025-02-06] MEDS: Lactated Ringers 1,000 ML IV SCH (20:48)
[2025-02-07] MEDS: Piperacillin/Tazobactam 3.375 GM in Sodium Chloride 0.9% 100 ML IV ONE (00:30)
[2025-02-07] MEDS: Lactated Ringers 1,000 ML IV SCH (00:37)
[2025-02-07 00:53] LABS: APPEARANCE,URINE CLOUDY (CLEAR); BILIRUBIN,URINE NEGATIVE (NEGATIVE); COLOR,URINE YELLOW (YELLOW); GLUCOSE,URINE 500 (NEGATIVE); KETONES,URINE NEGATIVE (NEGATIVE); LEUKOCYTE ESTERASE,URINE NEGATIVE (NEGATIVE); NITRITE,URINE POSITIVE (NEGATIVE); OCCULT BLOOD,URINE TRACE-LYSED (NEGATIVE); PH,URINE 5.5 (5.0-9.0); PROTEIN,URINE 30 (NEGATIVE)
[2025-02-07 00:55] LABS: AMPHETAMINES,URINE NEGATIVE (NEGATIVE); BARBITURATES,URINE NEGATIVE (NEGATIVE); BENZODIAZEPINE,URINE NEGATIVE (NEGATIVE); MDMA (ECSTASY), URINE NEGATIVE (NEGATIVE); METHADONE,URINE NEGATIVE (NEGATIVE); METHAMPHETAMINES,URINE POSITIVE (NEGATIVE); OPIATES,URINE NEGATIVE (NEGATIVE); OXYCODONE,URINE NEGATIVE (NEGATIVE); PHENCYCLIDINE,URINE NEGATIVE (NEGATIVE); TCA,URINE NEGATIVE (NEGATIVE)
[2025-02-07] MEDS: Norepinephrine Bit/D5W Premix 250 ML IV SCH (00:57)
[2025-02-07 01:02] LABS: BACTERIA,URINE MANY /HPF (0-FEW/HPF); EPITHELIAL CELLS,URINE MODERATE /HPF (NOT SEEN); RBC,URINE 0-5 /HPF (0-5)
[2025-02-07] MEDS: Iopamidol 612 MG/ML 100 ML Bottle IVPUSH ONE (01:07)
[2025-02-07] MEDS: VANCOmycin 1.5 GM in Sodium Chloride 0.9% 250 ML IV ONE (01:43)
[2025-02-07 01:53] VITALS: BP 94/61; PULSE 86
== END 2025-02-07 03:28 | disposition other institution (70) ==
LOC: DL.ED 19:09
DX: I95.9 Hypotension, unspecified (principal); N30.00 Acute cystitis without hematuria; E78.00 Pure hypercholesterolemia, unspecified; E11.9 Type 2 diabetes mellitus without complications; R51.9 Headache, unspecified; Z86.16 Personal history of COVID-19; F17.200 Nicotine dependence, unspecified, uncomplicated; Z79.4 Long term (current) use of insulin; Z79.899 Other long term (current) drug therapy; Z79.84 Long term (current) use of oral hypoglycemic drugs; Z88.8 Allergy status to other drugs, medicaments and biological substances
CPT/HCPCS: 36415; 70450; 71045; 71260; 74177; 80053; 80305; 81001; 82009; 82803; 82947; 83605; 84484; 85025; 87040; 87086; 87088; 87186; 93005; 93010; 96361; 96365; 96366; 96367; 96368; 99285; 99291; 99292; J2543; J3371; J7030; J7050; J7120; Q9967

== ENCOUNTER 2025-03-01 20:03 | Emergency (ER) | payer MEDICARE, MEDICAID ==
[2025-03-01 20:39] VITALS: BP 148/97; PULSE 111
== END 2025-03-01 20:33 | disposition left against medical advice (07) ==
LOC: DL.ED 20:03
DX: Z53.21 Procedure and treatment not carried out due to patient leaving prior to being seen by health care provider (principal)

== ENCOUNTER 2025-03-14 16:22 | Emergency (ER) | payer MEDICARE, MEDICAID ==
[2025-03-14 16:45] LABS: BASOPHILS PERCENT AUTO 0.5 % (0.0-1.0); EOSINOPHILS PERCENT AUTO 2.6 % (1.0-3.0); LYMPHOCYTES PERCENT AUTO 24.3 % (20.5-50.1); MONOCYTES PERCENT AUTO 8.7 % (2-8); NEUTROPHILS PERCENT AUTO 63.9 % (42.2-75.2); PLATELET COUNT,PLT 112 10^3/uL (150-450); RED BLOOD CELL COUNT 3.32 10^6/uL (4.2-5.4); WHITE BLOOD CELL COUNT,WBC 10.3 10^3/uL (5.0-10.0)
[2025-03-14] MEDS: Norepinephrine Bit/D5W Premix 250 ML IV SCH (17:01)
[2025-03-14 17:05] LABS: A/G RATIO 0.8; ALANINE AMINOTRANSFERASE,ALT 20 U/L (14-59); ASPARTATE AMNIOTRANSFERASE,AST 32 U/L (15-37); BILIRUBIN TOTAL 0.7 mg/dL (0.2-1.0); BLOOD UREA NITROGEN,BUN 17 mg/dL (7-18); CARBON DIOXIDE,CO2 25 mmol/L (21-32); CHLORIDE,CL 95 mmol/L (98-107); CREATININE 1.67 mg/dL (0.55-1.02); ETHANOL BLOOD MEDICAL 143 mg/dL (0); GLUCOSE RANDOM 219 mg/dL (70-99); POTASSIUM,K 2.5 mmol/L (3.5-5.1); PROTEIN TOTAL,TP 8.4 g/dL (6.4-8.2); SODIUM,NA 134 mmol/L (136-145)
[2025-03-14] MEDS: Hydrocortisone Sodium Succinate 100 MG/2 ML SDV IVPUSH ONE (17:11)
[2025-03-14] MEDS: Magnesium Sulfate 2 GM/50 mL 2 GM in Premix Bag 1 BAG IV ONE (17:22)
[2025-03-14] MEDS: Norepinephrine Bit/D5W Premix 250 ML ONE (17:23)
[2025-03-14] MEDS: Sodium Chloride 0.9% 10 ML Syringe FLUSH PRN (17:23)
[2025-03-14 17:27] LABS: ESTIMATED GFR 37 mL/min (>=60); LACTIC ACID 5.5 mmol/L (0.4-2.0)
[2025-03-14] MEDS: Potassium Chloride 10 MEQ Tab.ER PO ONE (17:42)
[2025-03-14] MEDS: Potassium Chloride 20 MEQ in Premix Bag 1 BAG IV ONE (18:07)
[2025-03-14] MEDS ORDERED: Take Home: Potassium Chloride 10 MEQ Tab, 10 Tab Pack PO ONE (19:54)
[2025-03-14 20:40] VITALS: BP 122/82; PULSE 90
== END 2025-03-14 20:22 | disposition home or self-care (01) ==
LOC: DL.ED 16:22
DX: I95.9 Hypotension, unspecified (principal); E78.00 Pure hypercholesterolemia, unspecified; E11.40 Type 2 diabetes mellitus with diabetic neuropathy, unspecified; I10 Essential (primary) hypertension; Z86.16 Personal history of COVID-19; Z79.82 Long term (current) use of aspirin; Z79.899 Other long term (current) drug therapy; Z79.4 Long term (current) use of insulin; Z88.8 Allergy status to other drugs, medicaments and biological substances; Z79.84 Long term (current) use of oral hypoglycemic drugs
CPT/HCPCS: 36415; 80053; 80307; 83605; 83735; 84484; 85025; 86140; 93005; 93010; 96361; 96365; 96366; 96367; 96368; 96375; 99284; 99285; A9270; J1720; J3475; J3480; J7030

== ENCOUNTER 2025-06-04 14:54 | Emergency (ER) | payer MEDICARE, MEDICAID ==
[2025-06-04 15:43] VITALS: BP 161/100; PULSE 82
== END 2025-06-04 15:20 | disposition home or self-care (01) ==
LOC: DL.ED 14:54
DX: S81.801A Unspecified open wound, right lower leg, initial encounter (principal); I10 Essential (primary) hypertension; E78.00 Pure hypercholesterolemia, unspecified; E11.9 Type 2 diabetes mellitus without complications; Z86.16 Personal history of COVID-19; Z79.899 Other long term (current) drug therapy; Z79.4 Long term (current) use of insulin; Z79.84 Long term (current) use of oral hypoglycemic drugs; Z79.82 Long term (current) use of aspirin; Z88.8 Allergy status to other drugs, medicaments and biological substances; X58.XXXA Exposure to other specified factors, initial encounter
CPT/HCPCS: 99283; A9270

== ENCOUNTER 2025-06-22 14:08 | Emergency (ER) | payer MEDICARE, MEDICAID ==
[2025-06-22 15:17] LABS: BASOPHILS PERCENT AUTO 0.3 % (0.0-1.0); EOSINOPHILS PERCENT AUTO 2.8 % (1.0-3.0); LYMPHOCYTES PERCENT AUTO 18.3 % (20.5-50.1); MONOCYTES PERCENT AUTO 5.7 % (2-8); NEUTROPHILS PERCENT AUTO 72.9 % (42.2-75.2); PLATELET COUNT,PLT 194 10^3/uL (150-450); RED BLOOD CELL COUNT 4.27 10^6/uL (4.2-5.4); WHITE BLOOD CELL COUNT,WBC 11.5 10^3/uL (5.0-10.0)
[2025-06-22 15:44] LABS: A/G RATIO 0.8; ALANINE AMINOTRANSFERASE,ALT 64.0 U/L (14-59); ASPARTATE AMNIOTRANSFERASE,AST 52.0 U/L (15-37); BILIRUBIN DIRECT 0.2 mg/dL (0.0-0.2); BILIRUBIN INDIRECT 0.5; BILIRUBIN TOTAL 0.7 mg/dL (0.2-1.0); BLOOD UREA NITROGEN,BUN 10.0 mg/dL (7-18); CARBON DIOXIDE,CO2 29.0 mmol/L (21-32); CHLORIDE,CL 99.0 mmol/L (98-107); CREATININE 1.23 mg/dL (0.55-1.02); EST CRCL DRUG DOSING (CG) 46.73 mL/min; GLUCOSE RANDOM 242.0 mg/dL (70-99); POTASSIUM,K 3.1 mmol/L (3.5-5.1); PROTEIN TOTAL,TP 8.1 g/dL (6.4-8.2); SODIUM,NA 138.0 mmol/L (136-145)
[2025-06-22 15:45] LABS: ESTIMATED GFR 53.0 mL/min (>=60)
[2025-06-22 16:11] VITALS: BP 123/87; PULSE 102
== END 2025-06-22 16:25 | disposition home or self-care (01) ==
LOC: DL.ED 14:08
DX: E11.65 Type 2 diabetes mellitus with hyperglycemia (principal); R53.1 Weakness; E78.00 Pure hypercholesterolemia, unspecified; I10 Essential (primary) hypertension; F17.200 Nicotine dependence, unspecified, uncomplicated; E11.40 Type 2 diabetes mellitus with diabetic neuropathy, unspecified; Z86.16 Personal history of COVID-19; Z79.4 Long term (current) use of insulin; Z79.84 Long term (current) use of oral hypoglycemic drugs; Z88.8 Allergy status to other drugs, medicaments and biological substances; Z79.82 Long term (current) use of aspirin; Z79.899 Other long term (current) drug therapy
CPT/HCPCS: 36415; 71045; 80048; 80076; 84484; 85025; 87040; 93005; 93010; 96360; 99284; 99285; J7030

== ENCOUNTER 2025-06-22 17:59 | Emergency (ER) | payer MEDICARE, MEDICAID ==
[2025-06-22 18:42] LABS: ETHANOL BLOOD MEDICAL < 3 mg/dL (0)
[2025-06-22 19:22] VITALS: BP 146/96; PULSE 87
== END 2025-06-22 19:18 | disposition home or self-care (01) ==
LOC: DL.ED 17:59
DX: F15.129 Other stimulant abuse with intoxication, unspecified (principal); I10 Essential (primary) hypertension; E78.00 Pure hypercholesterolemia, unspecified; E86.0 Dehydration; E11.9 Type 2 diabetes mellitus without complications; Z79.82 Long term (current) use of aspirin; Z79.4 Long term (current) use of insulin; Z79.899 Other long term (current) drug therapy; Z86.16 Personal history of COVID-19
CPT/HCPCS: 36415; 80307; 83735; 96360; 99283; 99284; J7030